=== PATIENT | female | born 1985 | race Caucasian/White ===

== ENCOUNTER 2018-08-12 10:36 | Emergency (ER) | payer SELFPAY ==
[2018-08-12 10:37] VITALS: BP 120/69; PULSE 72; RESP 18; TEMP 36.2; O2SAT 98; BMI 29.2
--- NOTE | 2018-08-12 10:39 | NURSING ---
NO OLD EKGS
--- NOTE | 2018-08-12 11:08 | EKG12_ITS ---
Test Reason : CP Blood Pressure : / mmHG Vent. Rate : 054 BPM Atrial Rate : 054 BPM P-R Int : 168 ms QRS Dur : 074 ms QT Int : 406 ms P-R-T Axes : 020 -11 039 degrees QTc Int : 385 ms Sinus bradycardia with sinus arrhythmia Otherwise normal ECG Confirmed by POLO DUMONT ([id number]), communications editor JUDITH REGALADO ([id number]) on 08/17/2018 2:42:19 PM Referred By: GURWINDER Confirmed By:DARLIN DUMONT
--- NOTE | 2018-08-12 11:08 | RAD_ITS ---
STUDY: X-RAY CHEST REASON FOR EXAM: Female, 33 years old. Chest pain and shortness of breath TECHNIQUE: PA and lateral views of the chest. COMPARISON: None. FINDINGS: The lungs are clear and expanded. There is no demonstrated pleural abnormality. Normal size heart. Normal mediastinum and delores. Normal visualized pulmonary arteries. Normal visualized aortic arch and descending thoracic aorta. Normal visualized thoracic spine. Normal visualized ribs, clavicles, and shoulders. There is no demonstrated abnormality of the visualized soft tissue structures of the upper abdomen. RAD/Chest PA and Lateral IMPRESSION: Normal x-ray examination of the chest. Electronically Signed: Nate Joy, at 12:15 EDT Tel , Service support ,
[2018-08-12] MEDS: Albuterol 2.5 MG/3 ML VIAL.NEB. INHALATION (11:13)
[2018-08-12 11:14] VITALS: O2SAT 98
--- NOTE | 2018-08-12 11:15 | ED.DCSUM_ITS ---
History of Present Illness Chief Complaint: Chest Pain Informant: Patient Onset: Yesterday Activity at onset: Light Activity Timing: Intermittent, Lasts - not sure Quality: Tightness Location: Substernal - without radiation Current Severity: Mild Maximum Severity: Moderate Worsened By: Exertion, Movement of Arm. Not Worsened By: Palpation, Breathing, Coughing Relieved By: Rest, Remaining Still Associated Symptoms: Nausea, Dyspnea. Negative for: Vomiting, Diaphoresis, Cough, Fever, Lightheadedness, Palpitations Narrative: Nonpleuritic discomfort. No history of asthma. Had strep throat recently, that is better, has about 1 day of amoxicillin left. No strong family history of heart disease. She takes no control pills or other mode of exogenous female hormones. No recent leg pain or swelling, hospitalization, surgery, immobilization, or long travel. No history of DVT or PE. Prior Similar Symptoms: No Past Medical History - Allergies and Home Meds Allergies/Adverse Reactions: Allergies No Known Allergies Allergy (Verified 08/12/18 10:37) Primary Care Physician: Kimberly Egan MD [NON-STAFF] - Lives: Spouse/ Significant Other Smoking Status: Never smoker Drugs: None Review of Systems General: Denies: Chills, Fever, Sweats Eyes: Denies: Visual changes - bilaterally, Diplopia ENT: Denies: Rhinorrhea, Sore throat Cardiovascular: Reports: Chest pain. Denies: Palpitations Respiratory: Reports: Dyspnea. Denies: Cough, Dyspnea on exertion Gastrointestinal: Reports: Nausea. Denies: Abdominal pain, Vomiting, Diarrhea, Melena, Hematochezia Genitourinary: Denies: Dysuria, Hematuria, Frequency Musculoskeletal: Denies: Back pain, Extremity Pain Skin: Denies: Rash, Wounds Neurological: Denies: Headache, Weakness, Numbness Physical Exam Vital Signs/Narrative: Vital Signs Temp Pulse Resp BP Pulse Ox 08/12/18 10:37 97.1 F L 72 18 120/69 98 Inital Vital Signs reviewed: Yes General: Well nourished, Well developed, No Acute Distress Head: Normocephalic, Atraumatic Eyes: Perrl, EOMI ENT: Moist mucous membranes, No rhinorrhea Neck: Supple, Nontender Cardiovascular: Regular rate, Regular rhythm, No murmurs Respiratory: No distress, CTA bilaterally, Chest nontender - but able to reproduce her sx by adducting outstretched arms against resistance Abdomen: Soft, Nontender, Nondistended, Normal bowel sounds Back: Nontender, Normal Inspection Extremities: Nontender, No edema. Negative for: Calf Tenderness - and no palpable cords Skin: Normal color, No rash, No Trauma Neurological: Alert, Oriented x3, Cranial nerves II-XII grossly intact, Normal Strength, Normal Sensation Psychological: Normal affect, Normal Mood Diagnostic/Tx/Re-eval Impressions Chest X-Ray 08/12/18 11:08 IMPRESSION: Normal x-ray examination of the chest. Electronically Signed: Nate Joy, at 12:15 EDT Tel , Service support , 08/12/18 11:08 Chest PA and Lateral [RAD] Stat Laboratory Results 08/12/18 08/12/18 11:45 11:45 WBC 7.0 RBC 4.82 Hgb 14.2 Hct 42.4 MCV 88.0 MCH 29.5 MCHC 33.5 RDW 12.6 RDW Differential 40.7 Plt Count 257 MPV 9.0 Immature Gran % (Auto) 0.300 Neut % (Auto) 56.6 Lymph % (Auto) 35.8 [place] % (Auto) 4.0 Eos % (Auto) 3.0 Baso % (Auto) 0.3 Absolute Neuts (auto) 4.0 Absolute Lymphs (auto) 2.52 Total Counted Not Reportable Sodium 139 Potassium 4.3 Chloride 108 H Carbon Dioxide 29.0 Anion Gap 2 L BUN 12 Creatinine 0.72 Estim Creat Clear Calc 89.54 Est GFR (MDRD) Af Amer 122 Est GFR (MDRD) Non-Af 101 BUN/Creatinine Ratio 16.8 Glucose 91 Calcium 8.8 Troponin I < 0.015 - Rhythm Strip Rhythm Strip: Sinus Rhythm Rate: 54 Ectopy: None - EKG Initial EKG Interpretation: Sinus Rhythm, No Acute Injury Pattern - normal EKG, nml axis Prior: No Prior Treatment: - - albuterol neb Repeat Eval: significantly improved - Medical Decision Making Work-up is unremarkable, patient is improved after albuterol. She is reassured. Her PERC score is 0, I do not think we need to further test to rule out pulmonary embolus acutely at this time. She admits that she has some spring seasonal allergy symptoms, although she has never been diagnosed with asthma she may also have a component of reactive airway disease. I will prescribe her a short burst of prednisone in addition to an albuterol inhaler and advised that she follow-up with her doctor and she is comfortable with this plan. ED Disposition - Plan for ED Patient: Disposition: Home or Assisted Living Diagnosis: Chest pain, unspecified Instructions: ED Chest Pain Atypical Unkn Cause, ED Reactive Airway Disease Prescriptions: Albuterol Inhaler [Ventolin Hfa] 1 - 2 puff INHALATION Q4H PRN PRN #1 inhaler PRN Reason: Wheezing Prednisone [Deltasone] 40 mg PO DAILY #10 tab Referrals: Kimberly Egan MD [NON-STAFF] - 3-5 Days if not improving
[2018-08-12 11:20] VITALS: PULSE 89; RESP 16
[2018-08-12 11:50] VITALS: BP 126/72; PULSE 55; RESP 16; O2SAT 100
[2018-08-12 11:52] LABS: Absolute Lymphocyte Count 2.52 X10^3/ul (0.83-4.51); Basophil# 0.02 X10^3/uL; Basophil% 0.3 % (0-1); Eosinophil# 0.21 X10^3/uL; Hematocrit 42.4 % (37-47); Hemoglobin 14.2 g/dl (12.0-15.0); Lymphocyte # 2.52 X10^3/ul (4.0); Lymphocyte % 35.8 % (19-41); Mean Corp Hgb Conc 33.5 g/gl (32-36); Mean Corpuscular Hgb 29.5 pg (27.0-32.0); Monocyte# 0.28 X10^3/uL; Neutrophil # 3.98 X10^3/uL (2.7-7.7); Neutrophil % 56.6 % (47-70); Platelet Count 257 K/mm3 (150-450); RBC Distribution Width CV 12.6 % (11.6-14.6); RBC Distribution Width SD 40.7 fl (35.1-43.9); Red Blood Count 4.82 M/mm3 (4.2-5.4)
[2018-08-12 11:56] LABS: POSITIVE COUNT NO; POSITIVE DIFFERENTIAL NO; POSITIVE MORPHOLOGY NO
[2018-08-12 12:08] LABS: Anion Gap 2 (5-15); BUN 12 mg/dL (7-18); BUN/Creat Ratio 16.8 RATIO (10-20); Calcium,Total 8.8 mg/dL (8.5-10.1); Chloride 108 mmol/L (98-107); Creatinine, Serum 0.72 mg/dL (0.55-1.02); EST Glomerular Filtration Rate 101 mL/min (>60); Est Glom Filt Rate - Afr Amer 122 mL/min (>60); Estimated Creatinine Clearance 89.54 ml/min; Glucose 91 mg/dL (74-106); Potassium 4.3 mmol/L (3.5-5.1); Sodium Level 139 mmol/L (136-145)
[2018-08-12 12:24] VITALS: BP 110/61; PULSE 81; RESP 18; O2SAT 99
[2018-08-12 13:08] VITALS: BP 114/64; PULSE 59; RESP 16; O2SAT 100
== END 2018-08-12 13:09 | disposition home or self-care (01) ==
PROVIDERS: Emergency Provider Emergency Medicine; Family Provider Internal Medicine; PCP Internal Medicine
DX: R07.9 Chest pain, unspecified (principal); J02.0 Streptococcal pharyngitis
CPT/HCPCS: 71046; 80048; 84484; 85025; 93005; 94640; 99284; A4216

== ENCOUNTER → 2020-07-07 14:12 | Outpatient (CLI) | payer SELFPAY ==
[2020-07-12 11:01] LABS: HPV Reflexed? NOT INDICATED
== END ==
PROVIDERS: PCP Internal Medicine; Visit Provider Obstetrics & Gynecology
DX: Z12.4 Encounter for screening for malignant neoplasm of cervix (principal)
CPT/HCPCS: 88175; G0145

== ENCOUNTER 2020-08-24 20:22 | Emergency (ER) | payer MEDICAID, SELFPAY ==
[2020-08-24 20:22] VITALS: BP 124/68; PULSE 85; RESP 18; TEMP 36.4; O2SAT 99; BMI 30.6
--- NOTE | 2020-08-24 20:36 | CT_ITS ---
STUDY: CTA CHEST REASON FOR EXAM: Female, 35 years old. pulmonary emb RADIATION DOSAGE (If Supplied By Facility): CTDIvol = ( 12.01 ) mGy, DLP = ( 409.33 ) mGycm TECHNIQUE: The examination was performed with the intravenous administration of IV 75mL Isovue-370. Post-processing of the angiographic images was performed, with multiplanar reformation and 3D reconstruction. Individualized dose optimization techniques were used for this CT. COMPARISON: None. FINDINGS: Normal enhancement of the main pulmonary artery and right and left pulmonary arteries. Normal enhancement of the bilateral peripheral pulmonary arteries. There is no demonstrated pulmonary embolism. Normal thoracic aorta and visualized great vessels. There is no demonstrated aortic dissection. Normal heart and pericardium. Normal mediastinum. Normal hilar regions. Normal visualized trachea and bronchi. The lungs are well expanded. Normal pulmonary parenchyma. No consolidation or pulmonary edema or pleural effusion. Normal pleura. Normal chest wall structures. Normal osseous structures. Unremarkable visualized upper abdomen. Small hiatal hernia noted. CT/CTA Chest W/WO Contrast IMPRESSION: 1. No demonstrated pulmonary embolism or arterial dissection. 2. No consolidation or pulmonary edema or pleural effusion Electronically Signed: Allan Rosas MD at 21:29 EDT , Service support ,
--- NOTE | 2020-08-24 20:36 | EKG12_ITS ---
Test Reason : ABNORMAL LABS Blood Pressure : / mmHG Vent. Rate : 082 BPM Atrial Rate : 082 BPM P-R Int : 152 ms QRS Dur : 070 ms QT Int : 364 ms P-R-T Axes : 022 -09 045 degrees QTc Int : 425 ms Normal sinus rhythm Normal ECG Confirmed by LUIS ENRIQUE FELIX, ALAN ([id number]), state editor TIMUR GUTIERREZ ([id number]) on 08/25/2020 10:23:45 AM Referred By: DC Confirmed By:ALAN DUDLEY MD
[2020-08-24 21:09] LABS: Absolute Lymphocyte Count 2.11 X10^3/uL (0.83-4.51); Absolute Neutrophil Count 6.4 X10^3/uL (2.0-7.7); Basophil# 0.04 X10^3/uL; Basophil% 0.4 % (0-1); Eosinophil# 0.21 X10^3/uL; Eosinophils% 2.3 % (0-5); Lymphocyte # 2.11 X10^3/ul (0.83-4.51); Mean Corp Hgb Conc 33.3 g/dL (32-36); Mean Corpuscular Hgb 29.1 pg (27.0-32.0); Mean Corpuscular Volume 87.3 fL (81-99); Mean Platelet Vol. 9.2 fl (6.2-12.0); Monocyte# 0.44 X10^3/uL; Monocyte% 4.8 % (0-10); NRBC Flagged by Analyzer 0 % (0-5); Neutrophil # 6.36 X10^3/uL (2.7-7.7); Neutrophil % 69.2 % (47-70); Platelet Count 308 K/mm3 (150-450); RBC Distribution Width CV 12.2 % (11.6-14.6); Red Blood Count 4.81 M/mm3 (4.2-5.4); White Blood Count 9.2 K/mm3 (4.4-11.0)
[2020-08-24 21:30] LABS: Anion Gap 6 (5-15); BUN 12 mg/dL (7-18); BUN/Creat Ratio 18.2 RATIO (10-20); Calcium,Total 9.3 mg/dL (8.5-10.1); Chloride 105 mmol/L (98-107); Creatinine, Serum 0.66 mg/dL (0.55-1.02); EST Glomerular Filtration Rate 109 mL/min (>60); Est Glom Filt Rate - Afr Amer 132 mL/min (>60); Estimated Creatinine Clearance 95.89 ml/min; Glucose 105 mg/dL (74-106); Potassium 3.6 mmol/L (3.5-5.1); Sodium Level 137 mmol/L (136-145)
--- NOTE | 2020-08-24 22:52 | EDS_ITS ---
HPI History of Present Illness Chief Complaint: Abn Labs Informant: patient Onset/Context/Timing Onset: Today Quality: D-dimer 3000 Worsened by: Nothing Relieved by: Nothing Associated Symptoms Associated Symptoms: Dyspnea, increased heart rate, currently 10 weeks Narrative Prior similar symptoms: No Recent Illness/Hospitalization: No PFSH PFSH Medical History Asthma Home Medications albuterol sulfate 1 - 2 puff INHALATION Q4H PRN PRN #1 inhaler 08/12/18 [Rx Last Taken Unknown] multivitamin,[id number] [Multivitamin With Minerals] 1 tab PO DAILY 08/12/18 [History Last Taken Unknown] montelukast [Singulair] 10 mg PO QHS 08/24/20 [History Last Taken Unknown] 21-iron fu-folic acid [ Complete] 1 tab PO DAILY 08/24/20 [History Last Taken Unknown] Allergy/AdvReac Type Severity Reaction Status Date / Time No Known Allergies Allergy Verified 08/24/20 20:24 Social History Smoking Status: Never smoker ROS ROS ED Review of Systems ROS Unobtainable: Denies due to encephalopathy Constitutional Constitutional ED: Denies chills or fever(s) Eyes Eyes: Denies change in vision ENT ENT ED: Denies ear pain Cardiovascular Cardiovascular: Reports chest pain; Denies palpitations Respiratory/Chest Respiratory/Chest: Reports dyspnea; Denies cough Gastrointestinal Gastrointestinal: Denies abdominal pain, nausea or vomiting Genitourinary Genitourinary ED: Denies dysuria Musculoskeletal Musculoskeletal: Denies myalgias Integumentary Denies rash Neurologic Neurologic: Denies headache(s) Psychiatric Psychiatric: Denies depression Endocrine Endocrinology: Denies polyuria Allergic/Immunologic Allergic/Immunologic ED: Denies urticaria EXAM Physical Exam Const Vital Signs: 08/24/20 20:22 08/24/20 21:13 08/24/20 21:14 Temperature 97.6 F L Temperature Source Temporal Pulse Rate 85 Respiratory Rate 18 Respiratory Effort Short of Breath Respiratory Pattern Normal Blood Pressure 124/68 H Blood Pressure Mean 86 Pulse Ox 99 Oxygen Delivery Method Room Air Room Air 08/24/20 23:02 Temperature Temperature Source Pulse Rate 73 Respiratory Rate 20 H Respiratory Effort Respiratory Pattern Blood Pressure 110/73 Blood Pressure Mean Pulse Ox 98 Oxygen Delivery Method Positive well nourished and well developed General Appearance ED: well developed HEENT trauma Eyes EOMs intact bilaterally Resp normal respiratory effort and clear to auscultation bilaterally Cardio regular rate and regular rhythm Extremity normal to inspection General Extremety ED: Negative for edema General Extremity: Negative for edema Neuro oriented x3 Sensorium / Orientation: alert Psych mental status grossly normal Skin no rashes or lesions noted MDM MDM MDM Narrative Medical decision making narrative: Patient consented to CTA. This was unrem arkable for any PE or acute abnormality. Her other laboratory testing was unremarkable and reassuring. Patient has outpatient follow-up. Return for any new or worsening issues. Lab Data Attestation: I reviewed the patient's lab results. Labs: Laboratory Results - last 24 hr 08/24/20 08/24/20 20:40 20:40 WBC 9.2 RBC 4.81 Hgb 14.0 Hct 42.0 MCV 87.3 MCH 29.1 MCHC 33.3 RDW Std Deviation 39.0 RDW Coeff of Jay 12.2 Plt Count 308 MPV 9.2 Immature Gran % (Auto) 0.300 Neut % (Auto) 69.2 Lymph % (Auto) 23.0 [place] % (Auto) 4.8 Eos % (Auto) 2.3 Baso % (Auto) 0.4 Absolute Neuts (auto) 6.4 Absolute Lymphs (auto) 2.11 Nucleated RBC % 0 Sodium 137 Potassium 3.6 Chloride 105 Carbon Dioxide 26.0 Anion Gap 6 BUN 12 Creatinine 0.66 Estim Creat Clear Calc 95.89 Est GFR (MDRD) Af Amer 132 Est GFR (MDRD) Non-Af 109 BUN/Creatinine Ratio 18.2 Glucose 105 Calcium 9.3 Troponin I < 0.015 Radiography Diagnostic Testing: Radiology Impression Chest CTA 08/24/20 20:36 IMPRESSION: 1. No demonstrated pulmonary embolism or arterial dissection. 2. No consolidation or pulmonary edema or pleural effusion Electronically Signed: Allan Rosas MD at 21:29 EDT , Service support , EKG Initial EKG: Attestation: I personally reviewed and interpreted this EKG as follows: Comments: Sinus rhythm at a rate of 82 with no acute ischemia or infarction pattern. Discharge Plan Triage Chief Complaint: Abn Labs ED Provider: David Zarate Dx/Rx/DC Orders Clinical Impression: Chest pain Prescriptions: No Action Therems-M 1 TABLET tablet 1 tab PO DAILY RF: 0 albuterol sulfate 1 INHALER inhaler 1 - 2 puff inhalation Q4H PRN PRN (Reason: Wheezing) Qty: 1 RF: 0 montelukast [Singulair] 10 mg tablet 10 mg PO QHS RF: 0 Complete 14 mg iron- 400 mcg Tablet 1 tab PO DAILY RF: 0 Primary Care Provider: Dang Arceo Referrals: Dang Arceo MD [Primary Care Provider] - Disposition Disposition: Home, self care Discharge Date/Time: 08/24/20 23:03
[2020-08-24 23:02] VITALS: BP 110/73; PULSE 73; RESP 20; O2SAT 98
== END 2020-08-24 23:03 | disposition home or self-care (01) ==
PROVIDERS: Emergency Provider Emergency Medicine; PCP Internal Medicine
DX: O26.891 Other specified pregnancy related conditions, first trimester (principal); R07.9 Chest pain, unspecified; R06.00 Dyspnea, unspecified; Z3A.10 10 weeks gestation of pregnancy
CPT/HCPCS: 71275; 80048; 84484; 85025; 93005; 99284; Q9967

== ENCOUNTER → 2020-09-06 15:41 | Outpatient (CLI) | payer MEDICAID, SELFPAY ==
[2020-08-24 20:22] VITALS: BMI 30.6
[2020-09-06 16:52] LABS: Absolute Lymphocyte Count 1.98 X10^3/uL (0.83-4.51); Absolute Neutrophil Count 6.5 X10^3/uL (2.0-7.7); Basophil# 0.03 X10^3/uL; Basophil% 0.3 % (0-1); Eosinophils% 1.1 % (0-5); Hematocrit 43.9 % (37-47); Hemoglobin 14.6 g/dL (12.0-15.0); Lymphocyte # 1.98 X10^3/ul (0.83-4.51); Lymphocyte % 21.7 % (19-41); Mean Corp Hgb Conc 33.3 g/dL (32-36); Mean Corpuscular Hgb 29.5 pg (27.0-32.0); Mean Corpuscular Volume 88.7 fL (81-99); Mean Platelet Vol. 9.1 fl (6.2-12.0); Monocyte# 0.46 X10^3/uL; NRBC Flagged by Analyzer 0 % (0-5); Neutrophil # 6.51 X10^3/uL (2.7-7.7); Neutrophil % 71.6 % (47-70); Platelet Count 319 K/mm3 (150-450); RBC Distribution Width CV 12.3 % (11.6-14.6); RBC Distribution Width SD 40.3 fl (35.1-43.9); Red Blood Count 4.95 M/mm3 (4.2-5.4); White Blood Count 9.1 K/mm3 (4.4-11.0)
[2020-09-06 17:11] LABS: Color, Urine Yellow (Yellow); Glucose, Dipstick Normal (Normal); Ketone-Dipstick Negative (Negative); Leukocyte Esterase-Dipstick 500 /ul (Negative); Nitrite-Dipstick Negative (Negative); Occult Blood-Urine 10 /ul (Negative); Protein-Dipstick 15 mg/dl (Negative); Urine Bilirubin Dipstick Negative (Negative); Urine Clarity Clear (Clear); Urine Urobilinogen Normal (Normal)
[2020-09-06 17:34] LABS: Thyroid Stim Hormone (TSH) 0.67 uIU/mL (0.358-3.74)
[2020-09-07 08:22] LABS: HIV - WCH Non-Reactive (Nonreactive); Hepatitis B Surface Antigen Non-Reactive (Nonreactive); Hepatitis C Antibody Non-Reactive (Nonreactive); Rubella IgG Reactive (Nonreactive); Syphilis Antibodies Non-reactive
[2020-09-09 00:11] LABS: Chlamydia By Nucleic Acid AMP Negative (Negative)
[2020-09-09 10:01] LABS: Gonococcus By Nucleic Acid AMP Negative (Negative)
== END ==
PROVIDERS: PCP Internal Medicine; Visit Provider Obstetrics & Gynecology
DX: Z11.3 Encounter for screening for infections with a predominantly sexual mode of transmission (principal); Z34.81 Encounter for supervision of other normal pregnancy, first trimester
CPT/HCPCS: 36415; 81002; 84443; 85025; 86703; 86762; 86780; 86803; 87340; 87491; 87591

== ENCOUNTER → 2021-03-22 11:19 | Outpatient (CLI) | payer MEDICAID, SELFPAY ==
--- NOTE | 2021-03-22 11:23 | US_ITS ---
STUDY: SECOND AND THIRD TRIMESTER OBSTETRICAL ULTRASOUND - LIMITED REASON FOR EXAM: Female, 35 years old GROWTH CHECK LMP: 06/18/2020. PRIOR ULTRASOUND: None. TECHNIQUE: Transabdominal TECHNICAL QUALITY: Adequate. FINDINGS: There is a single intrauterine fetus. The fetus is in a cephalic presentation. There is demonstrated cardiac activity with a heart rate of 145 bpm. There is a normal amniotic fluid volume. The largest amniotic fluid pocket measures 4.4 cm. The amniotic fluid index (JASON) is 10.5 cm. The placenta is anterior in location and is not low lying. There are Grade 2 placental changes. BIOMETRY: BPD: 9.07 cm: 36 weeks, 5 days HC: 33.01 cm: 37 weeks, 4 days AC: 11.46 cm: 39 weeks, 4 days FL: 7.63 cm: 39 weeks, 0 days Age by LMP: 39 weeks, 4 days. AKBAR by LMP: 03/25/2021. age by current US: 38 weeks, 3 days. AKBAR by current US: 04/02/2021. Estimated weight: 3682 grams, +/- 552 grams, 62 percentile. US/OB Limited With Biometrics IMPRESSION: Single live intrauterine gestation with a mean gestational age of 39 weeks and 4 days. Electronically Signed: Chaim Choi MD at 12:34 EST , Service support ,
== END ==
PROVIDERS: PCP Internal Medicine; Referring Provider Specialist; Visit Provider Specialist
DX: O26.843 Uterine size-date discrepancy, third trimester (principal); Z3A.39 39 weeks gestation of pregnancy
CPT/HCPCS: 76816

== ENCOUNTER 2021-04-03 15:09 | Emergency (ER) | payer MEDICAID, SELFPAY ==
[2021-04-03 15:11] VITALS: BP 146/80; PULSE 45; RESP 18; TEMP 36.4; O2SAT 99; BMI 31.2
[2021-04-03 15:44] VITALS: BP 182/78; PULSE 38; RESP 12
--- NOTE | 2021-04-03 15:57 | RAD_ITS ---
History: Bradycardia Portable chest: Comparison: August 12, 2018 Findings: Small focus of airspace opacification within the left upper lobe suggestive of pneumonia. Lungs are otherwise clear. Cardiomediastinal silhouette is normal. No pleural effusion or pneumothorax. IMPRESSION: Left upper lobe pneumonia. at 1617 Reported and signed by: Mando Chandler MD Electronically Signed: Mando Chandler MD at 16:16 EST Tel , Service support , RAD/Chest 1 View (Portable)
--- NOTE | 2021-04-03 15:58 | EKG12_ITS ---
Test Reason : LAYA Blood Pressure : / mmHG Vent. Rate : 035 BPM Atrial Rate : 035 BPM P-R Int : 170 ms QRS Dur : 072 ms QT Int : 474 ms P-R-T Axes : 022 -21 045 degrees QTc Int : 361 ms Marked sinus bradycardia Abnormal ECG Confirmed by DEBO FELIX, SAMANTHA ([id number]), science editor ITA MACEDO ([id number]) on 04/05/2021 11:11:10 AM Referred By: ALEM Confirmed By:SAMANTHA EDMONDSON MD
--- NOTE | 2021-04-03 15:59 | EX.ED.DYSGE1 ---
HPI History of Present Illness Chief Complaint: General Illness Informant: patient Narrative Narrative: 35-year-old female presents to the emergency room with bradycardia. She is week 1. She delivered at [facility]. She states the was rather uneventful. She had some leg cramps and began taking magnesium about 5 weeks ago. She states that at the very end of her she had some lower extremity swelling which was not uncommon compared to her other pregnancies. She states that delivery was uncomplicated and she went home 24 hours later. Baby has been doing well. She is breast-feeding. She states she has felt a little fatigued today. She denies any significant dyspnea or near syncope or syncopal episodes. She noticed that her heart rate seemed low especially when she lays down. [facility] Medical History Asthma Home Medications albuterol sulfate 1 - 2 puff INHALATION Q4H PRN PRN #1 inhaler 08/12/18 [Rx Last Taken Unknown] multivitamin,[id number] [Multivitamin With Minerals] 1 tab PO DAILY 08/12/18 [History Last Taken Unknown] montelukast [Singulair] 10 mg PO QHS 08/24/20 [History Last Taken Unknown] 21-iron fu-folic acid [ Complete] 1 tab PO DAILY 08/24/20 [History Last Taken Unknown] magnesium oxide 420 mg PO DAILY 04/03/21 [History Last Taken Unknown] Allergy/AdvReac Type Severity Reaction Status Date / Time No Known Allergies Allergy Verified 04/03/21 15:13 Social History (Updated 04/03/21 @ 16:[address] David León DO) Smoking Status: Never smoker substance use type: does not use ROS ROS ED Constitutional Constitutional ED: Denies chills, fever(s) or weight loss Eyes Eyes: Denies change in vision or diplopia ENT ENT ED: Denies ear pain, rhinorrhea or sore throat Cardiovascular Cardiovascular: Reports other Details: Bradycardia ; Denies chest pain, orthopnea, palpitations or racing heartbeat Respiratory/Chest Respiratory/Chest: Denies cough, dyspnea or orthopnea Gastrointestinal Gastrointestinal: Denies abdominal pain, diarrhea, nausea or vomiting Genitourinary Genitourinary ED: Denies dysuria, hematuria or urinary frequency Musculoskeletal Musculoskeletal: Reports other Details: Mild leg swelling ; Denies arthralgias or myalgias Integumentary Denies abscess or rash Neurologic Neurologic: Denies headache(s) or weakness Psychiatric Psychiatric: Denies anxiety, depression, suicidal ideation or suicidal thoughts Endocrine Endocrinology: Denies polydipsia, polyphagia or polyuria Allergic/Immunologic Allergic/Immunologic ED: Denies mouth swelling, tongue swelling or urticaria EXAM Physical Exam Const Vital Signs: 04/03/21 15:11 04/03/21 15:44 04/03/21 15:49 Temperature 97.5 F L Temperature Source Temporal Pulse Rate 45 L 38 L Respiratory Rate 18 12 Respiratory Effort Normal Non-Labored Respiratory Pattern Normal Blood Pressure 146/80 H 182/78 H Blood Pressure Mean 102 112 Pulse Ox 99 Oxygen Delivery Method Room Air 04/03/21 16:35 04/03/21 17:00 Temperature Temperature Source Pulse Rate 39 L 37 L Respiratory Rate 16 14 Respiratory Effort Respiratory Pattern Blood Pressure 151/94 H 170/77 H Blood Pressure Mean 113 108 Pulse Ox Oxygen Delivery Method Room Air Room Air Positive well nourished, well developed and obese General Appearance ED: well developed Nutritional Appearance: obese HEENT Reports normocephalic, head/scalp atraumatic, TM's clear and moist mucous membranes Negative for trauma Tympanic Membrane ED: Yes TM's clear Eyes PERRL and EOMs intact bilaterally Neck no lymphadenopathy, supple and no JVD Resp normal respiratory effort and clear to auscultation bilaterally Cardio regular rate and no murmurs Rate: bradycardia GI normal to inspection, nondistended, normoactive bowel sounds and non-tender Palpation: soft Back/Spine no CVA tenderness and normal ROM Extremity Negative for normal to inspection Extremity Narrative: 1+ bilateral lower extremity edema General Extremety ED: Yes edema; Negative for tenderness General Extremity: edema Neuro oriented x3 and CN's II-XII intact bilaterally Sensorium / Orientation: alert Motor Exam: strength 5/5 throughout Psych mental status grossly normal Mood & Affect: Negative for depressed or tearful Skin no rashes or lesions noted and no wounds MDM MDM MDM Narrative Medical decision making narrative: Basic blood work was rather unremarkable normal sodium potassium magnesium. My interpretation of the chest x-ray is no acute process. Radiology has concerns for a left upper lobe pneumonia but given that she does not have cough fever or white count I think that this might be an overcall. Patient continues to have sinus bradycardia in the 35-45 range. I spoke with on-call simplex printer installer Dr. Johnson. We presented the patient with two choices. The first is that she would be admitted overnight with echocardiogram tomorrow. Unfortunately given the pandemic her baby will not be allowed to stay with her. We did offer breast pump. The second option will be to go home with outpatient follow-up. Patient chooses option #2 which I do think is reasonable at this time as she appears relatively asymptomatic from the bradycardia. I will speak with her primary care doctor to help arrange follow-up and help arrange Holter monitor and echocardiogram. Lab Data Attestation: I reviewed the patient's lab results. Labs: Laboratory Results - last 24 hr 04/03/21 04/03/21 15:15 15:15 WBC 6.6 RBC 3.71 L Hgb 10.3 L Hct 32.1 L MCV 86.5 MCH 27.8 MCHC 32.1 RDW Std Deviation 41.7 RDW Coeff of Jay 13.4 Plt Count 319 MPV 9.9 Immature Gran % (Auto) 1.100 H Neut % (Auto) 66.2 Lymph % (Auto) 24.8 [place] % (Auto) 4.6 Eos % (Auto) 2.7 Baso % (Auto) 0.6 Absolute Neuts (auto) 4.4 Absolute Lymphs (auto) 1.63 Nucleated RBC % 0 Sodium 141 Potassium 4.3 Chloride 109 H Carbon Dioxide 24.0 Anion Gap 8 BUN 13 Creatinine 0.85 Estim Creat Clear Calc 74.45 Est GFR (MDRD) Af Amer 99 Est GFR (MDRD) Non-Af 82 BUN/Creatinine Ratio 15.4 Glucose 78 Calcium 8.4 L Magnesium 2.4 Total Bilirubin 0.40 Direct Bilirubin 0.06 AST 23 ALT 38 Alkaline Phosphatase 84 Troponin I High Sens 6 Total Protein 6.8 Albumin 2.6 L Globulin 4.2 Radiography Diagnostic Testing: Clinical Impression(s) from Imaging Studies Chest X-Ray 04/03/21 15:57 EKG Initial EKG: Attestation: I personally reviewed and interpreted this EKG as follows: Comments: Sinus bradycardia with a ventricular rate of 35 bpm. Discharge Plan Triage Chief Complaint: General Illness ED Provider: David León Dx/Rx/DC Orders Clinical Impression: Bradycardia, sinus Instructions: ED Bradycardia Prescriptions: No Action Therems-M 1 TABLET tablet 1 tab PO DAILY RF: 0 albuterol sulfate 1 INHALER inhaler 1 - 2 puff inhalation Q4H PRN PRN (Reason: Wheezing) Qty: 1 RF: 0 montelukast [Singulair] 10 mg tablet 10 mg PO QHS RF: 0 Complete 14 mg iron- 400 mcg Tablet 1 tab PO DAILY RF: 0 magnesium oxide 420 mg Tablet 420 mg PO DAILY RF: 0 Primary Care Provider: Dang Arceo Referrals: Dang Arceo MD [Primary Care Provider] - As soon as possible Disposition Disposition: Home, Self Care
[2021-04-03 16:35] VITALS: BP 151/94; PULSE 39; RESP 16
[2021-04-03 16:36] LABS: Absolute Lymphocyte Count 1.63 X10^3/uL (0.83-4.51); Absolute Neutrophil Count 4.4 X10^3/uL (2.0-7.7); Basophil# 0.04 X10^3/uL; Basophil% 0.6 % (0-1); Eosinophil# 0.18 X10^3/uL; Eosinophils% 2.7 % (0-5); Hematocrit 32.1 % (37-47); Hemoglobin 10.3 g/dL (12.0-15.0); Lymphocyte # 1.63 X10^3/ul (0.83-4.51); Lymphocyte % 24.8 % (19-41); Mean Corp Hgb Conc 32.1 g/dL (32-36); Mean Corpuscular Hgb 27.8 pg (27.0-32.0); Mean Corpuscular Volume 86.5 fL (81-99); Mean Platelet Vol. 9.9 fl (6.2-12.0); Monocyte% 4.6 % (0-10); NRBC Flagged by Analyzer 0 % (0-5); Neutrophil # 4.35 X10^3/uL (2.7-7.7); Neutrophil % 66.2 % (47-70); Platelet Count 319 K/mm3 (150-450); RBC Distribution Width CV 13.4 % (11.6-14.6); RBC Distribution Width SD 41.7 fl (35.1-43.9); Red Blood Count 3.71 M/mm3 (4.2-5.4); White Blood Count 6.6 K/mm3 (4.4-11.0)
[2021-04-03 16:44] LABS: AST(SGOT) 23 U/L (15-37); Alanine Aminotransfer ALT/SGPT 38 U/L (13-56); Albumin, Serum 2.6 g/dL (3.2-5.0); Alkaline Phosphatase 84 U/L (45-117); Anion Gap 8 (5-15); BUN 13 mg/dL (7-18); BUN/Creat Ratio 15.4 RATIO (10-20); Bilirubin, Direct 0.06 mg/dL (0.00-0.30); Calcium,Total 8.4 mg/dL (8.5-10.1); Chloride 109 mmol/L (98-107); Creatinine, Serum 0.85 mg/dL (0.55-1.02); EST Glomerular Filtration Rate 82 mL/min (>60); Est Glom Filt Rate - Afr Amer 99 mL/min (>60); Estimated Creatinine Clearance 74.45 ml/min; Globulin 4.2 g/dL (2.2-4.2); Glucose 78 mg/dL (74-106); Magnesium 2.4 mg/dL (1.6-2.6); Potassium 4.3 mmol/L (3.5-5.1); Protein, Total 6.8 g/dL (6.4-8.2); Sodium Level 141 mmol/L (136-145); Troponin-I HS 6 pg/mL (3.0-54.0)
[2021-04-03 17:00] VITALS: BP 170/77; PULSE 37; RESP 14
[2021-04-03 18:42] VITALS: BP 166/74; PULSE 39; RESP 15; O2SAT 97
[2021-04-03 18:55] LABS: Thyroid Stim Hormone (TSH) 1.33 uIU/mL (0.358-3.74)
== END 2021-04-03 19:05 | disposition home or self-care (01) ==
PROVIDERS: Emergency Provider Emergency Medicine; PCP Internal Medicine; Visit Provider Emergency Medicine
DX: R00.1 Bradycardia, unspecified (principal); E66.9 Obesity, unspecified; Z68.31 Body mass index [BMI] 31.0-31.9, adult
CPT/HCPCS: 71045; 80048; 80076; 83735; 84443; 84484; 85025; 93005; 99284

== ENCOUNTER 2021-12-31 20:06 | Emergency (ER) | payer MEDICAID, SELFPAY ==
[2021-12-31 20:08] VITALS: BP 116/69; PULSE 70; RESP 14; TEMP 36.4; O2SAT 100; BMI 29.7
--- NOTE | 2021-12-31 20:52 | EDS_ITS ---
HPI History of Present Illness Chief Complaint: Wound Narrative Narrative: 36-year-old female presenting for a wound check. She had a mole removed from the lateral aspect of the right upper extremity just above the elbow several days ago. This was by dermatology at [facility]. Subsequently this became infected a couple of days ago. She was seen and examined and started on Keflex 3 times daily 500 mg. She states that is actually improving. The area of redness was marked and she has not spread outside the margins. The redness is fainter. Her pain is improved. She does not have any lymphangitic streaking. No fevers or chills or systemic signs. She states her was concerned and wanted her to be evaluated. [facility] Medical History Asthma Home Medications albuterol sulfate 90 mcg/actuation aerosol inhaler 1 - 2 puff inhalation Q4H PRN PRN Wheezing ##1 08/12/18 [Rx Last Taken Unknown] multivitamin,ia-esnv-nerjrqct 27 mg-0.4 mg tablet (Therems-M) 1 tab PO DAILY 08/12/18 [History Last Taken Unknown] montelukast 10 mg tablet (Singulair) 10 mg PO QHS 08/24/20 [History Last Taken Unknown] vits,calcium 21-iron fum 14 mg iron-folic acid 400 mcg tablet ( Complete) 1 tab PO DAILY 08/24/20 [History Last Taken Unknown] magnesium oxide 420 mg tablet 420 mg PO DAILY 04/03/21 [History Last Taken Unknown] Allergy/AdvReac Type Severity Reaction Status Date / Time No Known Allergies Allergy Verified 12/31/21 20:07 Social History Smoking Status: Never smoker substance use type: does not use ROS ROS ED Constitutional Constitutional ED: Denies chills or fever(s) Eyes Eyes: Denies change in vision ENT ENT ED: Denies rhinorrhea or sore throat Cardiovascular Cardiovascular: Denies palpitations or racing heartbeat Respiratory/Chest Respiratory/Chest: Denies cough or dyspnea Gastrointestinal Gastrointestinal: Denies abdominal pain or constipation Genitourinary Genitourinary ED: Denies dysuria or hematuria Musculoskeletal Musculoskeletal: Denies back pain or myalgias Integumentary Reports other Details: Wound on right upper arm ; Denies abscess Neurologic Neurologic: Denies headache(s) or paresthesias Psychiatric Psychiatric: Denies anxiety or depression EXAM Physical Exam Const Vital Signs: 12/31/21 20:08 Temperature 97.5 F L Temperature Source Temporal Pulse Rate 70 Respiratory Rate 14 Blood Pressure 116/69 Blood Pressure Mean 84 Pulse Ox 100 Oxygen Delivery Method Room Air Positive well nourished General Appearance ED: NAD HEENT normocephalic and atraumatic Eyes PERRL and EOMs intact bilaterally Resp normal respiratory effort Cardio regular rate and regular rhythm Extremity Extremity Narrative: There is a 1 cm circular wound on the right upper arm on the posterior above the elbow about 8 cm. There is an area marked with a skin marker with some mild faint erythema within this. There is no redness outside the skin marker. There is no crepitance. There is no drainage. There is no fluctuance. Neuro oriented x3 Sensorium / Orientation: alert Motor Exam: strength 5/5 throughout Psych mental status grossly normal MDM MDM MDM Narrative Medical decision making narrative: Patient presents for wound check. There is no redness outside the area marked off on her arm. Patient reports that her pain is better. The redness has gone down. Does not been any drainage from the wound. She states she wanted to just get a wound check because her was concerned. She feels like she is overall getting better. She is on Keflex 500 mg p.o. 3 times daily. I counseled her this was likely going to heal. If it is already getting better on Keflex I will change her medications. She is instructed on wound care. She will follow-up with dermatology. Impression: 1. Wound check 2. Resolving cellulitis Lab Data Attestation: I reviewed the patient's lab results. Discharge Plan Triage Chief Complaint: Wound ED Provider: Kevin Hester Dx/Rx/DC Orders Instructions: ED Post Op Wound Check, General Prescriptions: No Action Therems-M 1 TABLET tablet 1 tab PO DAILY albuterol sulfate 1 INHALER inhaler 1 - 2 puff inhalation Q4H PRN PRN (Reason: Wheezing) Qty: 1 0RF montelukast [Singulair] 10 mg tablet 10 mg PO QHS Label Comments: take 1 tablet by mouth at bedtime Complete 14 mg iron- 400 mcg Tablet 1 tab PO DAILY magnesium oxide 420 mg Tablet 420 mg PO DAILY Primary Care Provider: Dang Arceo Referrals: Dang Arceo MD [Primary Care Provider] - Disposition Disposition: Home, Self Care
== END 2021-12-31 20:58 | disposition home or self-care (01) ==
PROVIDERS: Emergency Provider Student in an Organized Health Care Education/Training Program; PCP Internal Medicine; Visit Provider Student in an Organized Health Care Education/Training Program
DX: Z48.00 Encounter for change or removal of nonsurgical wound dressing (principal); L03.90 Cellulitis, unspecified; J45.909 Unspecified asthma, uncomplicated
CPT/HCPCS: 99282

== ENCOUNTER 2022-10-27 12:58 | Inpatient (IN) | payer OTHER, SELFPAY ==
[2022-10-27] VITALS (10 sets, daily range): BP systolic 99–128; BP diastolic 62–78; PULSE 61–82; RESP 14–18; TEMP 35.7–36.8; O2SAT 97–100; BMI 29.5; BMI 29.7
--- NOTE | 2022-10-27 13:03 | EX.ED.DYSGE1 ---
HPI History of Present Illness Chief Complaint: Syncope [facility] Medical History Asthma Home Medications albuterol sulfate 90 mcg/actuation aerosol inhaler 1 - 2 puff inhalation Q4H PRN PRN Wheezing ##1 08/12/18 [Rx Last Taken Unknown] multivitamin,ru-mazz-aforgjfc 27 mg-0.4 mg tablet (Therems-M) 1 tab PO DAILY 08/12/18 [History Last Taken Unknown] montelukast 10 mg tablet (Singulair) 10 mg PO QHS 08/24/20 [History Last Taken Unknown] vits,calcium 21-iron fum 14 mg iron-folic acid 400 mcg tablet ( Complete) 1 tab PO DAILY 08/24/20 [History Last Taken Unknown] magnesium oxide 420 mg tablet 420 mg PO DAILY 04/03/21 [History Last Taken Unknown] Allergy/AdvReac Type Severity Reaction Status Date / Time No Known Allergies Allergy Verified 12/31/21 20:07 Social History Smoking Status: Never smoker substance use type: does not use EXAM Physical Exam Const Vital Signs: 10/27/22 12:59 10/27/22 12:58 10/27/22 13:47 Temperature 96.2 F L Temperature Source Temporal Pulse Rate 82 Respiratory Rate 18 Respiratory Pattern Normal Blood Pressure 99/64 Blood Pressure Mean 75 Pulse Ox 99 Oxygen Delivery Method Room Air Room Air MDM MDM MDM Narrative Medical decision making narrative: HISTORY OF PRESENT ILLNESS: 37-year-old female here after passing out this morning. She states she passed out approximately 2 hours prior to arrival. States she had no trauma she felt like she was going to pass out felt dizzy warm flushed and woozy. Patient dates she then laid on the ground and passed out. She regained consciousness within seconds. reports no convulsions. No tongue biting or bowel or bladder incontinence. She denies any focal numbness weakness or loss sensation. The patient denies recent surgery in the last 4 weeks or immobilization in the last 3 days, denies previous diagnosis of DVT or PE, hemoptysis, unilateral leg swelling or malignancy with treatment the last 6 months. No estrogen use noted. Patient denies sudden onset or thunderclap headache, denies maximal intensity within 1 minute, vomiting, neck pain or stiffness, changes in vision, fever, history malignancy, syncope, seizures. Patient denies sudden onset of pain, no tearing sensation, no migratory symptoms, no new numbness, weakness or loss of sensation. Patient denies family history or personal history of Marfan syndrome or Smiley-Danlos REVIEW OF SYSTEMS: Pertinent positives: Syncope Pertinent negatives: Headache, chest pain, abdominal pain, bleeding diathesis, volume loss such as diarrhea or vomiting PHYSICAL EXAM: Nursing triage notes reviewed, Vital signs reviewed Constitutional: please see mdm HENT: MMM Eyes: Pupils equal round and reactive to light, Extraocular muscles intact Neck: No stridor, no JVD, full neck ROM Lungs: Clear to auscultation, No wheezing or rales. No increased work of breathing, no conversational dyspnea, no accessory muscle use, no nasal flaring. No respiratory distress noted Heart: Regular rate and rhythm, No murmurs, No rubs and No gallops, 2+ distal pulses (radial, femoral, posterior tibial) in all extremities Abdomen: Soft, there is no tenderness, rigidity, rebound or guarding, no obvious peritoneal signs, no palpable pulsatile abdominal masses, no auscultated abdominal bruit : No CVAT Extremities: No edema Neuro: Alert and oriented x3, neuro exam at baseline, cranial nerves II through XII are intact. No pain with extraocular muscle movement. There is negative test of skew. Normal speech. 5 of 5 strength in upper and lower extremities in flexion extension. Intact sensation to light touch in upper and lower extremity dermatomes. No truncal or extremity ataxia. No dysdiadochokinesia. Normal gait. 2+ reflexes. No meningeal signs. Negative Babinski. NIH of 0 Skin: No rash or lesions noted MEDICAL DECISION MAKING: Chief Complaint: Syncope External records reviewed: Seen for bradycardia in March 2021. EKG at that time showed sinus bradycardia with a ventricular rate of 35. EKG had normal MD interval with no obvious high degree block noted at that time. Factors affecting care: Bradycardia ALL IMAGES (IF OBTAINED) HAVE BEEN PERSONALLY REVIEWED AND INTERPRETED BY MYSELF. EKG with normal sinus rhythm, normal axis, no intervals, no STEMI, no WPW, no ARVD, no signs of Brugada syndrome [facility] Narrative: Patient was hemodynamically stable, afebrile, nontoxic-appearing. Exam without focal neurologic deficits. No focal cardiopulmonary abnormalities. I considered the following differential diagnosis: Arrhythmia, myocardial ischemia, WPW, ARVD, Brugada syndrome, subarachnoid hemorrhage, pulm embolism, aortic dissection, ectopic Patient was specifically concerned about being anemic. States been feeling fatigued and lightheaded for the greater part of last month. 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 Given patient concerned about anemia I did obtain blood work to rule out signs of systemic inflammation, anemia, electrolyte disturbances, myocardial ischemia, signs of heart failure. Labs and images were remarkable for severe anemia 6.7. Hemoccult negative. No evidence of myocardial schema with a negative troponin. test is pending. No evidence of heart failure with a negative BNP. Given the patient's severe anemia requiring blood transfusion she is appropriate for inpatient admission. Discussed with Dr. Valdez. The patient and/or family, caregivers express understanding. The patient and/or family, caregivers agrees with the plan. Shared decision making: I will have a discussion with the patient and or visitors regarding risk/benefits of further testing or admission. They will be made aware of of the risk/benefits inherent in this decision they will be given the opportunity to voice understanding. Total critical care time today provided was at least 0 [] minutes. This excludes separately billable procedures. Critical care time (if documented) is secondary to the patient having high probability of clinically significant/life threatening deterioration in the patient's condition which required my urgent intervention. Lab Data Attestation: I reviewed the patient's lab results. Lab results narrative: CBC without significant leukocytosis, there is severe anemia, there is no thrombocytopenia BMP without evidence of significant electrolyte abnormalities, no anion gap, no acute kidney injury. Troponin is negative, no evidence of myocardial ischemia BNP within normal limit suggestive of no increased myocardial stretch Stool occult test negative Labs: Laboratory Results - last 24 hr 10/27/22 13:35 WBC 6.8 RBC 3.24 L Hgb 6.7 L Hct 23.8 L MCV 73.5 L MCH 20.7 L MCHC 28.2 L RDW Std Deviation 41.7 RDW Coeff of Jay 15.6 H Plt Count 378 MPV 9.0 Immature Gran % (Auto) 0.600 Neut % (Auto) 59.3 Lymph % (Auto) 27.5 Davidson % (Auto) 6.1 Eos % (Auto) 5.6 H Baso % (Auto) 0.9 Absolute Neuts (auto) 4.1 Absolute Lymphs (auto) 1.88 Nucleated RBC % 0 Sodium 138 Potassium 4.1 Chloride 109 H Carbon Dioxide 26.0 Anion Gap 3 L BUN 12 Creatinine 0.75 Estim Creat Clear Calc 82.80 Est GFR (MDRD) Af Amer 114 Est GFR (MDRD) Non-Af 94 BUN/Creatinine Ratio 16.1 Glucose 100 Calcium 8.8 Troponin I High Sens < 3 L B-Natriuretic Peptide 13.1 Radiography Chest X-Ray - ED: Read by ED Physician Diagnostic Testing: Clinical Impression(s) from Imaging Studies Chest X-Ray 10/27/22 13:29 IMPRESSION: No radiographic evidence of acute cardiopulmonary disease. Hiatal hernia. Electronically Signed: Pretty Jamison MD at 14:03 EDT , I have personally reviewed the patient's chest x-ray. Chest x-ray is unremarkable for pulmonary edema, pneumothorax, pneumonia or focal cardiopulmonary abnormality. Discharge Plan Dx/Rx/DC Orders Clinical Impression: Anemia, Syncope Disposition Disposition: Acute Care Hospital [facility]
--- NOTE | 2022-10-27 13:06 | EKG12_ITS ---
Test Reason : CP Blood Pressure : / mmHG Vent. Rate : 068 BPM Atrial Rate : 068 BPM P-R Int : 192 ms QRS Dur : 074 ms QT Int : 380 ms P-R-T Axes : 023 -13 052 degrees QTc Int : 404 ms Normal sinus rhythm Low voltage QRS Borderline ECG When compared with ECG of 27-OCT-2022 13:13, MANUAL COMPARISON REQUIRED, DATA IS UNCONFIRMED Confirmed by LUIS ENRIQUE FELIX, ALAN ([id number]), field map editor TIMUR GUTIERREZ ([id number]) on 10/28/2022 1:21:28 PM Referred By: YOLANDA Confirmed By:ALAN DUDLEY MD
--- NOTE | 2022-10-27 13:13 | EKG12_ITS ---
Test Reason : Blood Pressure : / mmHG Vent. Rate : 075 BPM Atrial Rate : 075 BPM P-R Int : 172 ms QRS Dur : 078 ms QT Int : 376 ms P-R-T Axes : 020 000 042 degrees QTc Int : 419 ms Normal sinus rhythm Normal ECG Confirmed by TIM FELIX, POLO ([id number]), city editor TIMUR GUTIERREZ ([id number]) on 10/31/2022 8:41:02 AM Referred By: Confirmed By:DARLIN DUMONT MD
--- NOTE | 2022-10-27 13:29 | RAD_ITS ---
INDICATION: chest pain EXAMINATION/TECHNIQUE: X-RAY - XR Chest 1 View COMPARISON: Prior studies dated: April 03, [address] dated August 24, 2020 FINDINGS: LINES/DEVICES: None. LUNGS: No consolidation, edema or effusion. No pneumothorax. MEDIASTINUM AND CARDIOVASCULAR STRUCTURES: Cardiac silhouette not enlarged. There is a round opacity projecting over the cardiac silhouette consistent with a hiatal hernia. BONES AND SOFT TISSUES: Unremarkable. RAD/Chest 1 View (Portable) IMPRESSION: No radiographic evidence of acute cardiopulmonary disease. Hiatal hernia. Electronically Signed: Pretty Jamison MD at 14:03 EDT ,
[2022-10-27] MEDS: 0.9% Normal Saline 1,000 ML 1000 ML IV (13:45)
[2022-10-27 13:47] LABS: Absolute Lymphocyte Count 1.88 X10^3/uL (0.83-4.51); Absolute Neutrophil Count 4.1 X10^3/uL (2.0-7.7); Basophil# 0.06 X10^3/uL; Basophil% 0.9 % (0-1); Eosinophil# 0.38 X10^3/uL; Eosinophils% 5.6 % (0-5); Hematocrit 23.8 % (37-47); Hemoglobin 6.7 g/dL (12.0-15.0); Lymphocyte # 1.88 X10^3/ul (0.83-4.51); Lymphocyte % 27.5 % (19-41); Mean Corp Hgb Conc 28.2 g/dL (32-36); Mean Corpuscular Hgb 20.7 pg (27.0-32.0); Mean Corpuscular Volume 73.5 fL (81-99); Monocyte# 0.42 X10^3/uL; Monocyte% 6.1 % (0-10); NRBC Flagged by Analyzer 0 % (0-5); Neutrophil # 4.06 X10^3/uL (2.7-7.7); Neutrophil % 59.3 % (47-70); Platelet Count 378 K/mm3 (150-450); RBC Distribution Width CV 15.6 % (11.6-14.6); RBC Distribution Width SD 41.7 fl (35.1-43.9); Red Blood Count 3.24 M/mm3 (4.2-5.4); White Blood Count 6.8 K/mm3 (4.4-11.0)
[2022-10-27 13:58] LABS: BNP,B-Type NATRIURETIC PEPTIDE 13.1 pg/mL (0-100)
[2022-10-27 13:59] LABS: Anion Gap 3 (5-15); BUN 12 mg/dL (7-18); BUN/Creat Ratio 16.1 RATIO (10-20); Calcium,Total 8.8 mg/dL (8.5-10.1); Chloride 109 mmol/L (98-107); Creatinine, Serum 0.75 mg/dL (0.55-1.02); EST Glomerular Filtration Rate 94 mL/min (>60); Est Glom Filt Rate - Afr Amer 114 mL/min (>60); Glucose 100 mg/dL (74-106); Potassium 4.1 mmol/L (3.5-5.1); Sodium Level 138 mmol/L (136-145); Troponin-I HS < 3 pg/mL (3.0-54.0)
--- NOTE | 2022-10-27 14:37 | PCM.HP.STD ---
HPI - General General Date of Admission: 10/27/22 Date of Service: 10/27/22 Chief Complaint: Passed out HPI Narrative SHIRLEY CHARLES, is a 37 F who presents presented emergency department after passing out. Per patient she did experience. Of lightheadedness prior to passing out. She also complains of feeling weak over the past couple of days. On further questioning patient denied any heavy menses on the contrary menses have been light. Patient however did admit to using ibuprofen more than this history for headaches. She denied any melenic stools. In the emergency department patient was found to be anemic with hemoglobin of 6.7. She was also found to have significant microcytosis with MCV of 73.5. She was subsequently admitted to a monitored bed for further management [facility] Medical History Asthma Home Medications albuterol sulfate 90 mcg/actuation aerosol inhaler 1 - 2 puff inhalation Q4H PRN shortness of breath./wheezing 10/27/22 [History Last Taken 10/25/22] Allergy/AdvReac Type Severity Reaction Status Date / Time No Known Allergies Allergy Verified 12/31/21 20:07 Family History no significant family his no significant family history Social History Smoking Status: Never smoker substance use type: does not use ROS ROS Narrative GENERAL: Fatigue HEENT: denies headache, sinus congestion, or drainage, dysphagia RESPIRATORY: denies cough, sputum production, shortness of breath, dyspnea on exertion CARDIAC: denies chest pain, palpitations, orthopnea, PND GASTROINTESTINAL: denies abdominal pain, nausea, vomiting, melena, GENITOURINARY: denies dysuria, urgency, frequency, heamaturia EXTREMITY: denies swelling MUSCULOSKELETAL: denies current joint pain or tenderness NEUROLOGIC: denies focal numbness, weakness, tingling HEMATOLOGIC: denies easy bruising and/or hemorrhage INTEGUMENT: denies rashes PSYCHIATRIC: denies suicidal or homicidal ideation Vital Signs Vital Signs Vital Signs: 10/27/22 12:59 10/27/22 12:58 10/27/22 13:47 Temperature 96.2 F L Temperature Source Temporal Pulse Rate 82 Respiratory Rate 18 Respiratory Pattern Normal Blood Pressure 99/64 Blood Pressure Mean 75 Pulse Ox 99 Oxygen Delivery Method Room Air Room Air Weight Weight: 73.21 kg Body Mass Index (BMI) 29.5 Physical Exam Narrative GENERAL: cooperative HEENT: Atraumatic; normocephalic EYES; Anicteric, pallor of the conjunctiva NECK; supple, normal thyroid, RESPIRATORY: Diminished to auscultation CARDIOVASCULAR: Regular S1 S2, GI: soft, normoactive bowel sounds, : No Renal angle tenderness; EXTREMITIES: No edema, no clubbing, MUSCULOSKELETAL: no muscle wasting NEURO: Awake; no lateralizing signs. SKIN: No Rash PSYCH; Flat affect Results Lab / Micro Data 10/27/22 13:35 10/27/22 13:35 Labs: Laboratory Results - last 24 hr 10/27/22 13:35: WBC 6.8, RBC 3.24 L, Hgb 6.7 L, Hct 23.8 L, MCV 73.5 L, MCH 20.7 L, MCHC 28.2 L, RDW Std Deviation 41.7, RDW Coeff of Jay 15.6 H, Plt Count 378, MPV 9.0, Immature Gran % (Auto) 0.600, Neut % (Auto) 59.3, Lymph % (Auto) 27.5, Dundy % (Auto) 6.1, Eos % (Auto) 5.6 H, Baso % (Auto) 0.9, Absolute Neuts (auto) 4.1, Absolute Lymphs (auto) 1.88, Nucleated RBC % 0, Sodium 138, Potassium 4.1, Chloride 109 H, Carbon Dioxide 26.0, Anion Gap 3 L, BUN 12, Creatinine 0.75, Estim Creat Clear Calc 82.80, Est GFR (MDRD) Af Amer 114, Est GFR (MDRD) Non-Af 94, BUN/Creatinine Ratio 16.1, Glucose 100, Calcium 8.8, Troponin I High Sens < 3 L, B-Natriuretic Peptide 13.1 Micro: Microbiology 10/27/22 14:05 Stool Stool Occult Blood (RD) - Final Radiology Impression Chest X-Ray 10/27/22 13:29 IMPRESSION: No radiographic evidence of acute cardiopulmonary disease. Hiatal hernia. Electronically Signed: Pretty Jamison MD at 14:03 EDT Reading Location ID and State: [facility] / [place] Tel , Service support , Assessment & Plan Assessment/Plan (1) Anemia: QUALIFIERS: Anemia type: iron deficiency Iron deficiency anemia type: chronic blood loss Qualified Code(s): D50.0 - Iron deficiency anemia secondary to blood loss (chronic) PLAN: Plan Patient is a 37-year-old lady presented with a syncopal episode found to have significant anemia with hemoglobin of 6.7 1. Symptomatic anemia ? Admitted to a monitored bed. Patient was typed and crossmatched and order given for patient to be transfused with 1 unit PRBC 2. Microcytic anemia ? Suspect is a induced gastritis versus peptic ulcer disease. Patient was started on octreotide and Protonix drip after discussion with Dr. Ann with GI. Patient be kept n.p.o. for possible endoscopic evaluation in the morning 3. Syncopal episode ? Suspected to be secondary to patient symptomatic anemia placed on continuous telemetry monitoring. Ordered 2D echo 4. Mild intermittent asthma ? Currently not in exacerbation aerosol treatment as needed 5. Overweight with BMI 29.5 ? Weight loss advised 6. DVT prophylaxis ? Chemoprophylaxis contraindicated in view of patient presenting complaints. Ambulation encouraged Time spent in the patient's overall evaluation,decision-making process, review of diagnostic data, adjustment of management, discussion with other providers, nursing nursing and ancillary staff involved in patient's care documentation, 60 minutes Charges/Coding Visit Charges Inpatient E&M: 93595 Init Hosp L2
[2022-10-27 14:48] LABS: Platelet Count 410 K/mm3 (150-450); RET-HE 15.1 pg (30-35); Reticulocyte Count 2.11 % (0.5-1.5)
--- NOTE | 2022-10-27 14:52 | ECHOD_ITS ---
Reason For Study: SYNCOPE Procedure This was a 2D Doppler, Color Flow transthoracic echocardiogram. Exam performed portable in patient room. Left Ventricle Normal LV size. The estimated ejection fraction is 60 %. No evidence for diastolic dysfunction. No regional wall motion abnormalities noted. Right Ventricle Normal RV size. Normal systolic function. Atria Normal left atrium. Normal right atrium. No doppler evidence for ASD. Mitral Valve There is no mitral valve stenosis. Trivial mitral valve insufficiency. Tricuspid Valve There is no tricuspid stenosis. Trivial tricuspid valve insufficiency. Pulmonary artery systolic pressure is 20 mmHg. Aortic Valve The aortic valve is not well visualized in the short axis view. There is no aortic stenosis. No aortic valve insufficiency. Pulmonic Valve There is no pulmonic valvular stenosis. No pulmonic valve insufficiency. Great Vessels Normal aortic root. Pericardium/Pleural No pericardial effusion. MMode/2D Measurements & Calculations LVIDd: 4.2 cm IVSd: 0.80 cm Ao root diam: 2.6 cm LVIDs: 2.9 cm LVPWd: 0.91 cm RVDd: 3.5 cm FS: 30.0 % LAV(MOD-bp): 47.5 ml LVAd ap4: 26.8 cm2 SV(MOD-sp4): 45.3 ml LAV(MOD-bp) Indexed: 27.2 ml/m2 LVLd ap4: 8.4 cm LAV(MOD-sp2): 48.1 ml EDV(MOD-sp4): 72.2 ml LAV(MOD-sp4): 36.8 ml EDV(sp4-el): 72.3 ml LVAs ap4: 14.3 cm2 LVLs ap4: 6.4 cm ESV(MOD-sp4): 26.9 ml ESV(sp4-el): 26.8 ml EF(MOD-sp4): 62.7 % EF(sp4-el): 62.9 % SV(sp4-el): 45.4 ml LA A4 area: 16.4 cm2 LA dimension(2D): 3.5 cm RA A4 area: 15.6 cm2 TAPSE: 2.9 cm Time Measurements MV dec time: 0.21 sec Doppler Measurements & Calculations MV E max vern: 96.0 cm/sec Lat Peak E' Vern: 19.3 cm/sec Med Peak E' Vern: 14.5 cm/sec MV A max vern: 58.9 cm/sec E/E' lat: 5.0 E/E' med: 6.6 MV E/A: 1.6 MV V2 max: 111.1 cm/sec Ao V2 max: 158.5 cm/sec MV max P.0 mmHg MV dec slope: 453.1 cm/sec2 Ao max P.1 mmHg MV V2 mean: 52.4 cm/sec Ao V2 mean: 101.9 cm/sec MV mean P.4 mmHg Ao mean P.9 mmHg MV V2 VTI: 33.4 cm Ao V2 VTI: 34.3 cm AV (velocity ratio): 0.87 LV V1 max: 120.7 cm/sec PA V2 max: 107.0 cm/sec LV V1 max P.8 mmHg PA V2 mean: 73.9 cm/sec LV V1 mean P.3 mmHg LV V1 mean: 85.7 cm/sec LV V1 VTI: 29.9 cm ECHO/Echo Complete Interpretation Summary The estimated ejection fraction is 60 %. No evidence for diastolic dysfunction. Trivial mitral valve insufficiency. Ordering Physician: Jamar Valdez Referring Physician: Dang Arceo M.D. Performed By: Emilia Anderson RCS
[2022-10-27 14:57] LABS: Iron 8 ug/dL (50-170); Iron Binding Capacity,Total 491 ug/dL (250-450); PERCENT IRON SATURATION 1.6 % (15.0-55.0)
[2022-10-27 15:02] LABS: Internal QC Validated? YES +Cl - CLEAR BKGD; Pregnancy, Urine Negative Negative
[2022-10-27] MEDS: 0.9% Normal Saline 1,000 ML 75 ML IV (17:59)
[2022-10-27] MEDS: 0.9% Saline Lock 10 ML Syringe IV (18:04)
[2022-10-27] MEDS: Montelukast 10 MG Tablet PO (22:55)
[2022-10-28 04:55] VITALS: BP 118/74; PULSE 71; RESP 18; TEMP 36.4; O2SAT 98
[2022-10-28 06:30] LABS: Absolute Lymphocyte Count 1.42 X10^3/uL (0.83-4.51); Absolute Neutrophil Count 5.9 X10^3/uL (2.0-7.7); Basophil# 0.05 X10^3/uL; Basophil% 0.6 % (0-1); Eosinophil# 0.16 X10^3/uL; Hematocrit 27.9 % (37-47); Hemoglobin 8.1 g/dL (12.0-15.0); Lymphocyte # 1.42 X10^3/ul (0.83-4.51); Lymphocyte % 17.8 % (19-41); Mean Corpuscular Hgb 21.7 pg (27.0-32.0); Mean Corpuscular Volume 74.6 fL (81-99); Mean Platelet Vol. 9.4 fl (6.2-12.0); Monocyte# 0.39 X10^3/uL; Monocyte% 4.9 % (0-10); NRBC Flagged by Analyzer 0 % (0-5); Neutrophil # 5.94 X10^3/uL (2.7-7.7); Neutrophil % 74.2 % (47-70); Platelet Count 409 K/mm3 (150-450); RBC Distribution Width CV 16.5 % (11.6-14.6); RBC Distribution Width SD 44.4 fl (35.1-43.9); Red Blood Count 3.74 M/mm3 (4.2-5.4)
[2022-10-28 06:56] LABS: Anion Gap 3 (5-15); BUN 8 mg/dL (7-18); BUN/Creat Ratio 10.4 RATIO (10-20); Calcium,Total 8.5 mg/dL (8.5-10.1); Chloride 111 mmol/L (98-107); Creatinine, Serum 0.77 mg/dL (0.55-1.02); EST Glomerular Filtration Rate 91 mL/min (>60); Est Glom Filt Rate - Afr Amer 110 mL/min (>60); Estimated Creatinine Clearance 80.65 ml/min; Glucose 101 mg/dL (74-106); Potassium 4.4 mmol/L (3.5-5.1); Sodium Level 138 mmol/L (136-145)
[2022-10-28] MEDS: Morphine 2 MG/ML Syringe IV (07:03)
[2022-10-28] MEDS: Ondansetron 4 MG/2 ML Vial IV ×2 (07:06→20:50)
[2022-10-28 07:30] LABS: Bedside Glucose 105 mg/dL (74-106)
[2022-10-28 07:41] VITALS: O2SAT 96
[2022-10-28 08:24] LABS: Vitamin B12 492 pg/mL (211-911)
--- NOTE | 2022-10-28 08:57 | PN.HOSP_ITS ---
Reason for Visit Reason for Visit: Diagnoses Iron deficiency anemia secondary to blood loss (chronic) (10/27/22) Subjective Subjective No further events. Does note that she had a near syncopal event earlier in the month. States her menstrual periods have bee light for the past several months. Objective Data Objective Data Vital Signs: Vital Signs Temp Pulse Resp BP Pulse Ox O2 Del Method 36.4 C L 71 18 118/74 96 Room Air 10/28/22 04:55 10/28/22 04:55 10/28/22 04:55 10/28/22 04:55 10/28/22 07:41 10/28/22 07:41 Oxygen Delivery Method Room Air Weight: 73.8 kg Body Mass Index (BMI) 29.7 Intake & Output: Intake and Output for Last 24 Hours 10/26/22 10/27/22 10/28/22 23:59 23:59 23:59 Intake Total 1722.5 / 1722.5 900 / 900 Balance 1722.5 / 1722.5 900 / 900 Lab / Micro Data 10/28/22 06:00 10/28/22 06:00 Labs: Laboratory Results - last 24 hr 10/27/22 13:35: WBC 6.8, RBC 3.24 L, Hgb 6.7 L, Hct 23.8 L, MCV 73.5 L, MCH 20.7 L, MCHC 28.2 L, RDW Std Deviation 41.7, RDW Coeff of Jay 15.6 H, Plt Count 378, MPV 9.0, Immature Gran % (Auto) 0.600, Neut % (Auto) 59.3, Lymph % (Auto) 27.5, [place] % (Auto) 6.1, Eos % (Auto) 5.6 H, Baso % (Auto) 0.9, Absolute Neuts (auto) 4.1, Absolute Lymphs (auto) 1.88, Nucleated RBC % 0, Retic Count 2.11 H, Immatur e Retic Fraction 31.10 H, Retic Hgb Equivalent 15.1 L, Sodium 138, Potassium 4.1, Chloride 109 H, Carbon Dioxide 26.0, Anion Gap 3 L, BUN 12, Creatinine 0.75, Estim Creat Clear Calc 82.80, Est GFR (MDRD) Af Amer 114, Est GFR (MDRD) Non-Af 94, BUN/Creatinine Ratio 16.1, Glucose 100, Calcium 8.8, Iron 8 L, TIBC 491 H, Iron Saturation 1.6 L, Troponin I High Sens < 3 L, B-Natriuretic Peptide 13.1 10/27/22 13:58: Crossmatch See Detail 10/27/22 14:20: Blood Type O POSITIVE, Antibody Screen NEGATIVE 10/27/22 14:37: Crossmatch See Detail 10/27/22 14:52: Urine Test Negative 10/28/22 06:00: WBC 8.0, RBC 3.74 L, Hgb 8.1 L, Hct 27.9 L, MCV 74.6 L, MCH 21.7 L, MCHC 29.0 L, RDW Std Deviation 44.4 H, RDW Coeff of Jay 16.5 H, Plt Count 409, MPV 9.4, Immature Gran % (Auto) 0.500, Neut % (Auto) 74.2 H, Lymph % (Auto) 17.8 L, [place] % (Auto) 4.9, Eos % (Auto) 2.0, Baso % (Auto) 0.6, Absolute Neuts (auto) 5.9, Absolute Lymphs (auto) 1.42, Nucleated RBC % 0, Sodium 138, Potassium 4.4, Chloride 111 H, Carbon Dioxide 24.0, Anion Gap 3 L, BUN 8, Creatinine 0.77, Estim Creat Clear Calc 80.65, Est GFR (MDRD) Af Amer 110, Est GFR (MDRD) Non-Af 91, BUN/Creatinine Ratio 10.4, Glucose 101, Calcium 8.5, Vitamin B12 492 10/28/22 06:42: POC Glucose 105 Micro: Microbiology 10/27/22 14:05 Stool Stool Occult Blood (RD) - Final Radiography Diagnostic Testing: Radiology Impression Chest X-Ray 10/27/22 13:29 IMPRESSION: No radiographic evidence of acute cardiopulmonary disease. Hiatal hernia. Electronically Signed: Pretty Jamison MD at 14:03 EDT , Physical Exam Const alert and no apparent distress HEENT head/scalp atraumatic and moist oral mucous membranes Neck no lymphadenopathy Resp normal respiratory effort and no retractions Cardio regular rate, regular rhythm, S1 normal heart sound and S2 normal heart sound GI normal to inspection, nondistended, normoactive bowel sounds, soft to palpation and non-tender Extremity normal to inspection Assessment & Plan Assessment/Plan (1) Anemia: QUALIFIERS: Anemia type: iron deficiency Iron deficiency anemia type: chronic blood loss Qualified Code(s): D50.0 - Iron deficiency anemia secondary to blood loss (chronic) PLAN: microcytic, iron-deficient transfused 1 unit PRBCs GI consulted Start IV iron. Pt is not a vegan, but does not eat red meat. (2) Syncope: QUALIFIERS: Syncope type: unspecified Qualified Code(s): R55 - Syncope and collapse PLAN: 2/2 anemia monitor PLAN: Plan Chronic conditions: * Mild intermittent asthma? Currently not in exacerbation aerosol treatment as needed * Overweight with BMI 29.5? Weight loss advised DVT prophylaxis ? Chemoprophylaxis contraindicated in view of patient presenting complaints. Ambulation encouraged Charges/Coding Visit Charges Inpatient E&M: 03563 Subs Hosp L2
[2022-10-28 10:09] VITALS: BP 105/71; PULSE 59; RESP 16; TEMP 36.8; O2SAT 99
--- NOTE | 2022-10-28 11:30 | CASEMGMT ---
RN REUBEN Face to Face with patient for initial transition planning/care coordination assessment. RN CM introduced self and role at [facility]. Patient lying in bed, alert and oriented, at bedside. Patient willing to participate in assessment and is able to answer all questions appropriately. Care providers, pharmacy, and demographics verified. Patient wishes to discharge home, denies need for home health at this time. Patient states she has no further needs or concerns at this time. CM to follow for discharge planning needs that may arise. PCP: Adis Specialists: MARCELA ONEILL functional medicine Preferred [facility]acy: [facility] Insurance: [employer] Prescription Benefit: yes Living Will/HPOA: none LNOK: Living Arrangements: Patient lives with in a 2 story home. Patient is independent and able to ambulate stairs. Transportation: self, DME/HHC: Patient denies DME in the home. Patient denies previous HHC or SNF Disposition Plan: Patient to discharge home with family support and follow-up plans in place. Mel MELENDEZN, RN, CM
[2022-10-28 13:47] VITALS: BP 103/68; PULSE 64; RESP 16; TEMP 36.7; O2SAT 100
[2022-10-28] MEDS: Sodium Ferric Gluconat 250 MG in 0.9% Normal Saline 250 ML 135 MG IV (16:11)
[2022-10-28 16:24] VITALS: BP 93/62; PULSE 61; RESP 16; TEMP 36.8; O2SAT 100
[2022-10-28] MEDS: Acetaminophen 325 MG Tablet 650 MG PO (16:36)
--- NOTE | 2022-10-28 16:59 | EX.PCM.CON.G ---
HPI Consult Data Date of Consult: 10/28/22 HPI Narrative Reason for Consultation: Anemia HPI Narrative: SHIRLEY CHARLES, is a 37 F who presents presented emergency department after passing out. Per patient she did experience. Of lightheadedness prior to passing out. She also complains of feeling weak over the past couple of days. On further questioning patient denied any heavy menses on the contrary menses have been light. Patient however did admit to using ibuprofen more than this history for headaches. She denied any melenic stools. In the emergency department patient was found to be anemic with hemoglobin of 6.7. She was also found to have significant microcytosis with MCV of 73.5. She was subsequently admitted to a monitored bed for further management [facility] Medical History Asthma Home Medications albuterol sulfate 90 mcg/actuation aerosol inhaler 1 - 2 puff inhalation Q4H PRN shortness of breath./wheezing 10/27/22 [History Last Taken 10/25/22] Allergy/AdvReac Type Severity Reaction Status Date / Time No Known Allergies Allergy Verified 12/31/21 20:07 Family History no significant family his Social History Smoking Status: Never smoker substance use type: does not use ROS ROS Narrative GENERAL: Fatigue HEENT: denies headache, sinus congestion, or drainage, dysphagia RESPIRATORY: denies cough, sputum production, shortness of breath, dyspnea on exertion CARDIAC: denies chest pain, palpitations, orthopnea, PND GASTROINTESTINAL: denies abdominal pain, nausea, vomiting, melena, GENITOURINARY: denies dysuria, urgency, frequency, heamaturia EXTREMITY: denies swelling MUSCULOSKELETAL: denies current joint pain or tenderness NEUROLOGIC: denies focal numbness, weakness, tingling HEMATOLOGIC: denies easy bruising and/or hemorrhage INTEGUMENT: denies rashes PSYCHIATRIC: denies suicidal or homicidal ideation Physical Exam Const alert and no apparent distress HEENT head/scalp atraumatic and moist oral mucous membranes Neck no lymphadenopathy Resp normal respiratory effort and no retractions Cardio regular rate, regular rhythm, S1 normal heart sound and S2 normal heart sound GI normal to inspection, nondistended, normoactive bowel sounds, soft to palpation and non-tender Extremity normal to inspection Lab / Micro Data 10/28/22 06:00 10/28/22 06:00 Labs: Laboratory Results - last 24 hr 10/27/22 13:58: Crossmatch See Detail 10/28/22 06:00: WBC 8.0, RBC 3.74 L, Hgb 8.1 L, Hct 27.9 L, MCV 74.6 L, MCH 21.7 L, MCHC 29.0 L, RDW Std Deviation 44.4 H, RDW Coeff of Jay 16.5 H, Plt Count 409, MPV 9.4, Immature Gran % (Auto) 0.500, Neut % (Auto) 74.2 H, Lymph % (Auto) 17.8 L, [place] % (Auto) 4.9, Eos % (Auto) 2.0, Baso % (Auto) 0.6, Absolute Neuts (auto) 5.9, Absolute Lymphs (auto) 1.42, Nucleated RBC % 0, Sodium 138, Potassium 4.4, Chloride 111 H, Carbon Dioxide 24.0, Anion Gap 3 L, BUN 8, Creatinine 0.77, Estim Creat Clear Calc 80.65, Est GFR (MDRD) Af Amer 110, Est GFR (MDRD) Non-Af 91, BUN/Creatinine Ratio 10.4, Glucose 101, Calcium 8.5, Vitamin B12 492 10/28/22 06:42: POC Glucose 105 Micro: Microbiology 10/27/22 14:05 Stool Stool Occult Blood (RD) - Final Radiology Impression Echocardiogram 10/27/22 14:52 Interpretation Summary The estimated ejection fraction is 60 %. No evidence for diastolic dysfunction. Trivial mitral valve insufficiency. Ordering Physician: Jamar Valdez Referring Physician: Dang Arceo M.D. Performed By: Emilia Anderson RCS Assessment & Plan Assessment/Plan (1) Anemia: QUALIFIERS: Anemia type: iron deficiency Iron deficiency anemia type: chronic blood loss Qualified Code(s): D50.0 - Iron deficiency anemia secondary to blood loss (chronic) PLAN: Plan Patient is a 37-year-old lady presented with a syncopal episode found to have significant anemia with hemoglobin of 6.7 Symptomatic anemia ? Admitted to a monitored bed. Patient was typed and crossmatched and order given for patient to be transfused with 1 unit PRBC Microcytic anemia ? Suspect is a induced gastritis versus peptic ulcer disease. Stop Protonix drip and octreotide. I will send labs for celiac disease. She should undergo upper and lower endoscopy while she is in the hospital. Charges/Coding Visit Charges Inpatient E&M: 83905 Init Hosp L3
[2022-10-28] MEDS: Bisacodyl 5 MG Tablet 20 MG PO (19:13)
[2022-10-28] MEDS: Polyethylene Glycol 3350 BOWEL PREP PO (20:52)
[2022-10-28] MEDS: Montelukast 10 MG Tablet PO (20:57)
[2022-10-28 22:09] VITALS: BP 102/62; PULSE 58; RESP 18; TEMP 36; O2SAT 100
[2022-10-29] VITALS (12 sets, daily range): BP systolic 86–112; BP diastolic 42–64; PULSE 50–78; RESP 16–18; TEMP 36.1–36.8; O2SAT 94–100; BMI 29.7
[2022-10-29 06:08] LABS: Absolute Lymphocyte Count 1.87 X10^3/uL (0.83-4.51); Absolute Neutrophil Count 4.4 X10^3/uL (2.0-7.7); Basophil# 0.04 X10^3/uL; Basophil% 0.6 % (0-1); Eosinophil# 0.47 X10^3/uL; Eosinophils% 6.5 % (0-5); Hematocrit 26.3 % (37-47); Hemoglobin 7.6 g/dL (12.0-15.0); Lymphocyte # 1.87 X10^3/ul (0.83-4.51); Lymphocyte % 25.8 % (19-41); Mean Corp Hgb Conc 28.9 g/dL (32-36); Mean Platelet Vol. 9.8 fl (6.2-12.0); Monocyte# 0.44 X10^3/uL; Monocyte% 6.1 % (0-10); NRBC Flagged by Analyzer 0.3 % (0-5); Neutrophil # 4.37 X10^3/uL (2.7-7.7); Neutrophil % 60.3 % (47-70); Platelet Count 366 K/mm3 (150-450); RBC Distribution Width CV 16.9 % (11.6-14.6); RBC Distribution Width SD 45.8 fl (35.1-43.9); Red Blood Count 3.46 M/mm3 (4.2-5.4); White Blood Count 7.2 K/mm3 (4.4-11.0)
--- NOTE | 2022-10-29 08:27 | PN.HOSP_ITS ---
Reason for Visit Reason for Visit: Diagnoses Iron deficiency anemia secondary to blood loss (chronic) (10/27/22) Syncope and collapse (10/27/22) Subjective Subjective Feels well. Does state that she take ibuprofen, up to 400mg/daily, for daily hea daches. Does have migraines, which are different for her. Daily, she experiences at least a frontal headache. Has seen neurology in the past. Objective Data Objective Data Vital Signs: Vital Signs Temp Pulse Resp BP Pulse Ox O2 Del Method 36.8 C 63 18 95/57 L 94 Room Air 10/29/22 07:58 10/29/22 07:58 10/29/22 07:58 10/29/22 07:58 10/29/22 07:58 10/29/22 07:58 Oxygen Delivery Method Room Air Weight: 73.8 kg Body Mass Index (BMI) 29.7 Intake & Output: Intake and Output for Last 24 Hours 10/27/22 10/28/22 10/29/22 23:59 23:59 23:59 Intake Total 1722.5 / 1722.5 2665.50 / 2665.50 326.46 / 326.46 Balance 1722.5 / 1722.5 2665.50 / 2665.50 326.46 / 326.46 Lab / Micro Data 10/29/22 05:01 10/28/22 06:00 Labs: Laboratory Results - last 24 hr 10/29/22 05:01: WBC 7.2, RBC 3.46 L, Hgb 7.6 L, Hct 26.3 L, MCV 76.0 L, MCH 22.0 L, MCHC 28.9 L, RDW Std Deviation 45.8 H, RDW Coeff of Jay 16.9 H, Plt Count 366, MPV 9.8, Immature Gran % (Auto) 0.700, Neut % (Auto) 60.3, Lymph % (Auto) 25.8, [place] % (Auto) 6.1, Eos % (Auto) 6.5 H, Baso % (Auto) 0.6, Absolute Neuts (auto) 4.4, Absolute Lymphs (auto) 1.87, Nucleated RBC % 0.3 Micro: Microbiology 10/27/22 14:05 Stool Stool Occult Blood (RD) - Final Radiography Diagnostic Testing: Radiology Impression Echocardiogram 10/27/22 14:52 Interpretation Summary The estimated ejection fraction is 60 %. No evidence for diastolic dysfunction. Trivial mitral valve insufficiency. Ordering Physician: Jamar Valdez Referring Physician: Dang Arceo M.D. Performed By: Emilia Anderson RCS Physical Exam Const alert and no apparent distress Resp normal respiratory effort, no retractions, no use of accessory muscles and clear to auscultation bilaterally Neuro Sensorium / Orientation: awake and alert Assessment & Plan Assessment/Plan (1) Anemia: QUALIFIERS: Anemia type: iron deficiency Iron deficiency anemia type: chronic blood loss Qualified Code(s): D50.0 - Iron deficiency anemia secondary to blood loss (chronic) PLAN: microcytic, iron-deficient transfused 1 unit PRBCs GI consulted Start IV iron. Pt is not a vegan, but does not eat red meat. Patient had hemoglobin earlier this year in March where it was 13.3. (2) Syncope: QUALIFIERS: Syncope type: unspecified Qualified Code(s): R55 - Syncope and collapse PLAN: 2/2 anemia monitor (3) Migraine: QUALIFIERS: Migraine type: without aura Status migrainosus presence: without status migrainosus Intractability: not intractable Qualified Code(s): G43.009 - Migraine without aura, not intractable, without status migrainosus PLAN: chronic has classic migraines, but also been told she has tension-type headaches. will start amitriptyline for prophylaxis and recommend that she follow up with neurology as outpt. (4) Peptic ulcer disease: PLAN: Noted on EGD. Report pending at the time of this documentation. On PPI Advised against further NSAIDs, including ibuprofen and Naprosyn. PLAN: Plan Chronic conditions: * Mild intermittent asthma? Currently not in exacerbation aerosol treatment as needed * Overweight with BMI 29.5? Weight loss advised DVT prophylaxis ? Chemoprophylaxis contraindicated in view of patient presenting complaints. Ambulation encouraged Charges/Coding Visit Charges Inpatient E&M: 06039 Subs Hosp L2
--- NOTE | 2022-10-29 10:19 | NURSING ---
Patient left unit to OR
[2022-10-29] MEDS: 0.9% Normal Saline 1,000 ML 15 ML IV (10:52)
--- NOTE | 2022-10-29 11:30 | EGD_PTH ---
PATIENT: SHIRLEY CHARLES LOC: [facility] U#:[id number] AGE/SX: 37/F ROOM: [facility] RE10/27/[address]: Dr. Geo Ortega DO : 1985 BED: 1 DIS: 10/30/2022 SPEC #: [id number] RECD: 10/29/22 13:33 STATUS: HANDY RESeema #: [id number] CARLEE: 10/29/22 11:[address]: Varinder Ann DEPT: SURGICAL PATHOLOGY RECD BY: Tanisha Moreno ENTERED: 10/30/22 09:32 SP TYPE: EGD BIOPSY OTHR DR: MD Dr. Geo Shah DO Dr. Liza D Talampas, MD Tissues: A - Duodenum, NOS B - Gastric mucous membrane C - Esophagus, NOS Procedures: Special Stain Group II Surgery Specimen Level IV Alcian Blue/PAS (control) Comments: @ Ordering doctor for SUIV edited from to @ by LOIS at 10/30/22 1024 @ Submitting doctor edited from to @ by RGOOD at 10/30/22 1024 HEADER OPERATION: Colonoscopy, EGD, biopsy PRE-OP DIAGNOSIS: Anemia TISSUE SUBMITTED: A - Duodenum biopsy, B - Gastric antrum for histo and H. pylori, C - Distal esophagus biopsy MICROSCOPIC DIAGNOSIS A. Duodenum, biopsy: Fragments of duodenal mucosa with moderate acute and chronic inflammation, extensive gastric metaplasia and reactive changes. B. Gastric antrum, biopsy: Moderate gastritis. See microscopic description and comment. C. Distal esophagus, biopsy: A fragment of gastroesophageal mucosa with moderate chronic inflammation. Intestinal metaplasia (goblet cell metaplasia) not identified. Focal changes consistent with eosinophilic esophagitis. See comment. SJ:rg 10/31/2022 COMMENT B. The results of immunohistochemistry for Helicobacter pylori will be reported separately ([id number]). C. Alcian blue/PAS stain with matched control is used in the evaluation of the specimen. Increased number of eosinophils (>20 per high power field) are noted consistent with eosinophilic esophagitis. Correlation with clinical, endoscopic findings and appropriate follow-up are necessary. MICROSCOPIC DESCRIPTION Slides are reviewed. B. The specimen shows fragments of gastric mucosa with chronic inflammatory cell infiltrates in the lamina propria consisting of lymphocytes and plasma cells, consistent with moderate chronic gastritis. GROSS DESCRIPTION A - Received in fixative is one container labeled with the patient's name and designated duodenal ulcer biopsy. The specimen consists of multiple irregular fragments of light ingram soft tissue that in aggregate measure 1.5 x 0.6 x 0.1 cm. The specimen is totally submitted in one cassette. B - Received in fixative is one container labeled with the patient's name and designated gastric antrum. The specimen consists of two irregular fragments of light ingram soft tissue that in aggregate measure 0.7 x 0.6 x 0.1 cm. The specimen is totally submitted in one cassette. C - Received in fixative is one container labeled with the patient's name and designated distal esophagus. The specimen consists of one irregular fragment of light ingram soft tissue that measures 0.5 x 0.5 x 0.1 cm. The specimen is totally submitted in one cassette. / AM:maliha 10/30/2022 TC:3 CPT: 57774 x3, 10929
--- NOTE | 2022-10-29 11:30 | IMM_PTH ---
PATIENT: SHIRLEY CHARLES LOC: [facility] U#:[id number] AGE/SX: 37/F ROOM: [facility] RE10/27/[address]: Dr. Geo Ortega DO : 1985 BED: 1 DIS: 10/30/2022 SPEC #: [id number] RECD: 10/30/22 10:23 STATUS: HANDY RESeema #: [id number] CARLEE: 10/29/22 11:[address]: Ra Sethhsaan DEPT: IMMUNOHISTOCHEMISTRY RECD BY: Shira Camacho ENTERED: 10/30/22 10:24 SP TYPE: IMMUNO OTHR DR: MD Dr. Geo Shah DO Dr. Liza D Talampas, MD Tissues: B - Stomach, NOS Procedures: H Pylori (initial) PHYSICIAN & INSTITUTION [place] [address] SPECIMEN INFORMATION: Tissue Source: B - Gastric antrum Clinical Info: Viviana Specimen Number: [id number] CPT code: 49058 METHODOLOGY: Deparaffinized sections of prefer/formalin-fixed tissue or PAP/DQ stained slides are incubated with monoclonal/polyclonal antibodies/oligonucleotide probes. Localization is made via biotin free immunoperoxidase method. Appropriate controls are performed and reacted as expected. Results on target cell population are indicated in the following table: RESULTS: ANTIBODY / CLONE RESULT Block B H Pylori (polyclonal) negative These tests were developed and their performance characteristics determined by [facility]. They may not have been cleared or approved by the U.S. Food and Drug Administration. The FDA has determined that such clearance or approval is not necessary. The above immunohistochemical/dualISH markers are ordered and reviewed by the Pathologist. INTERPRETATION: B. Gastric antrum, biopsy: Negative for Helicobacter pylori organisms. NEELAM:maliha 10/31/2022
--- NOTE | 2022-10-29 13:15 | NURSING ---
Patient returned to the unit from PACU
[2022-10-29] MEDS: Montelukast 10 MG Tablet PO (21:12)
[2022-10-30 03:00] VITALS: BP 115/58; PULSE 56; RESP 18; TEMP 36.8; O2SAT 94
[2022-10-30 06:18] LABS: Absolute Lymphocyte Count 1.51 X10^3/uL (0.83-4.51); Absolute Neutrophil Count 11.9 X10^3/uL (2.0-7.7); Basophil# 0.02 X10^3/uL; Basophil% 0.1 % (0-1); Hematocrit 25.4 % (37-47); Hemoglobin 7.2 g/dL (12.0-15.0); Lymphocyte # 1.51 X10^3/ul (0.83-4.51); Lymphocyte % 10.6 % (19-41); Mean Corp Hgb Conc 28.3 g/dL (32-36); Mean Corpuscular Hgb 21.7 pg (27.0-32.0); Mean Corpuscular Volume 76.5 fL (81-99); Mean Platelet Vol. 9.4 fl (6.2-12.0); Monocyte# 0.59 X10^3/uL; Monocyte% 4.1 % (0-10); NRBC Flagged by Analyzer 0.4 % (0-5); Neutrophil # 11.89 X10^3/uL (2.7-7.7); Neutrophil % 83.4 % (47-70); Platelet Count 371 K/mm3 (150-450); RBC Distribution Width CV 17.2 % (11.6-14.6); RBC Distribution Width SD 46.5 fl (35.1-43.9); Red Blood Count 3.32 M/mm3 (4.2-5.4); White Blood Count 14.3 K/mm3 (4.4-11.0)
[2022-10-30 07:59] VITALS: O2SAT 96
--- NOTE | 2022-10-30 08:29 | PCM.PN.HOSP ---
Reason for Visit Reason for Visit: Diagnoses Iron deficiency anemia secondary to blood loss (chronic) (10/27/22) Migraine without aura, not intractable, without status migrainosus (10/27/22) Peptic ulcer, site unspecified, unspecified as acute or chronic, without hemorrhage or perforation (10/27/22) Syncope and collapse (10/27/22) Subjective Subjective Feels well. No further dizziness after an event yesterday. IV infiltrating in left arm. Objective Data Objective Data Vital Signs: Vital Signs Temp Pulse Resp BP Pulse Ox O2 Del Method 36.8 C 56 L 18 115/58 L 96 Room Air 10/30/22 03:00 10/30/22 03:00 10/30/22 03:00 10/30/22 03:00 10/30/22 07:59 10/30/22 07:59 Oxygen Delivery Method Room Air Weight: 73.482 kg Body Mass Index (BMI) 29.7 Intake & Output: Intake and Output for Last 24 Hours 10/28/22 10/29/22 10/30/22 23:59 23:59 23:59 Intake Total 2665.50 / 2665.50 527.96 / 527.96 774.75 / 774.75 Balance 2665.50 / 2665.50 527.96 / 527.96 774.75 / 774.75 Lab / Micro Data 10/30/22 05:33 10/28/22 06:00 Labs: Laboratory Results - last 24 hr 10/30/22 05:33: WBC 14.3 H, RBC 3.32 L, Hgb 7.2 L, Hct 25.4 L, MCV 76.5 L, MCH 21.7 L, MCHC 28.3 L, RDW Std Deviation 46.5 H, RDW Coeff of Jay 17.2 H, Plt Count 371, MPV 9.4, Immature Gran % (Auto) 1.800 H, Neut % (Auto) 83.4 H, Lymph % (Auto) 10.6 L, [place] % (Auto) 4.1, Eos % (Auto) 0.0, Baso % (Auto) 0.1, Absolute Neuts (auto) 11.9 H, Absolute Lymphs (auto) 1.51, Nucleated RBC % 0.4 Micro: Microbiology 10/27/22 14:05 Stool Stool Occult Blood (RD) - Final Physical Exam Const alert and no apparent distress Extremity normal to inspection Extremity Narrative: infiltrated IV in LUE. Neuro Sensorium / Orientation: awake and alert Assessment & Plan Assessment/Plan (1) Anemia: QUALIFIERS: Anemia type: iron deficiency Iron deficiency anemia type: chronic blood loss Qualified Code(s): D50.0 - Iron deficiency anemia secondary to blood loss (chronic) PLAN: acute v subacute 2/2 to GI bleed microcytic, iron-deficient transfused 1 unit PRBCs GI consulted Start IV iron. Pt is not a vegan, but does not eat red meat. Patient had hemoglobin earlier this year in March where it was 13.3. (2) Syncope: QUALIFIERS: Syncope type: unspecified Qualified Code(s): R55 - Syncope and collapse PLAN: 2/2 anemia monitor (3) Migraine: QUALIFIERS: Intractability: not intractable Migraine type: without aura Status migrainosus presence: without status migrainosus Qualified Code(s): G43.009 - Migraine without aura, not intractable, without status migrainosus PLAN: chronic has classic migraines, but also been told she has tension-type headaches. will start amitriptyline for prophylaxis and recommend that she follow up with neurology as outpt. (4) Peptic ulcer disease: PLAN: Noted on EGD. Report pending at the time of this documentation. On PPI Advised against further NSAIDs, including ibuprofen and Naprosyn. PLAN: Plan Chronic conditions: Mild intermittent asthma? Currently not in exacerbation aerosol treatment as needed Overweight with BMI 29.5? Weight loss advised DVT prophylaxis ? Chemoprophylaxis contraindicated in view of patient presenting complaints. Ambulation encouraged
[2022-10-30 09:00] VITALS: BP 110/59; PULSE 70; RESP 16; TEMP 37.2; O2SAT 99
[2022-10-30] MEDS: 0.9% Saline Lock 10 ML Syringe IV (09:04)
--- NOTE | 2022-10-30 09:16 | DS.PCM_ITS ---
Providers Date of Admission: 10/27/22 Primary Care Physician: Dr. Dang Arceo MD Consultations 10/27/22 16:48 Consult: Gastroenterology Routine Consulting Provider: [facility] Reason for Consult: [facility] Consult: No MD Notified: Yes Date Notified: 10/27/22 Time Notified: 14:51 Method of Notification: Verbal Reason For Visit: SYNCOPE Diagnosis Discharge Diagnosis (1) Anemia: Status: Acute Code(s): D64.9 - Anemia, unspecified Qualifiers: Anemia type: iron deficiency Iron deficiency anemia type: chronic blood loss Qualified Code(s): D50.0 - Iron deficiency anemia secondary to blood loss (chronic) Plan: acute v subacute 2/2 to GI bleed microcytic, iron-deficient transfused 1 unit PRBCs GI consulted Start IV iron. Pt is not a vegan, but does not eat red meat. Patient had hemoglobin earlier this year in March where it was 13.3. (2) Syncope: Status: Acute Code(s): R55 - Syncope and collapse Qualifiers: Syncope type: unspecified Qualified Code(s): R55 - Syncope and collapse Plan: 2/2 anemia monitor (3) Migraine: Status: Acute Code(s): G43.909 - Migraine, unspecified, not intractable, without status migrainosus Qualifiers: Migraine type: without aura Status migrainosus presence: without status migrainosus Intractability: not intractable Qualified Code(s): G43.009 - Migraine without aura, not intractable, without status migrainosus Plan: chronic has classic migraines, but also been told she has tension-type headaches. will start amitriptyline for prophylaxis and recommend that she follow up with neurology as outpt. (4) Peptic ulcer disease: Status: Acute Code(s): K27.9 - Peptic ulcer, site unspecified, unspecified as acute or chronic, without hemorrhage or perforation Plan: Noted on EGD. Report pending at the time of this documentation. On PPI Advised against further NSAIDs, including ibuprofen and Naprosyn. Plan Chronic conditions: * Mild intermittent asthma? Currently not in exacerbation aerosol treatment as needed * Overweight with BMI 29.5? Weight loss advised DVT prophylaxis ? Chemoprophylaxis contraindicated in view of patient presenting complaints. Ambulation encouraged Medications at Discharge Home Medications albuterol sulfate 90 mcg/actuation aerosol inhaler 1 - 2 puff inhalation Q4H PRN shortness of breath./wheezing 10/27/22 amitriptyline 10 mg tablet 10 mg PO QHS #30 tabs 10/30/22 ferrous sulfate 325 mg (65 mg iron) tablet (FeroSul) 325 mg PO DAILY@1200 #30 tabs 10/30/22 pantoprazole 40 mg tablet,delayed release (Protonix) 40 mg PO BID #90 tabs 10/30/22 Hospital Course Operations None Procedures EGD Summary of Care Provided Minutes Spent on Discharge: 35 Weight / BMI Weight Weight: 73.482 kg Body Mass Index (BMI) 29.7 ABG / Lab / Microbiology Data 10/30/22 05:33 10/28/22 06:00 Laboratory: Laboratory Results - last 24 hr 10/30/22 05:33: WBC 14.3 H, RBC 3.32 L, Hgb 7.2 L, Hct 25.4 L, MCV 76.5 L, MCH 21.7 L, MCHC 28.3 L, RDW Std Deviation 46.5 H, RDW Coeff of Jay 17.2 H, Plt Count 371, MPV 9.4, Immature Gran % (Auto) 1.800 H, Neut % (Auto) 83.4 H, Lymph % (Auto) 10.6 L, [place] % (Auto) 4.1, Eos % (Auto) 0.0, Baso % (Auto) 0.1, Absolute Neuts (auto) 11.9 H, Absolute Lymphs (auto) 1.51, Nucleated RBC % 0.4 Microbiology: Microbiology 10/27/22 14:05 Stool Stool Occult Blood (RD) - Final D/C Instructions Discharge Diet: No restrictions Call your doctor if you observe: - (blood in stools. dark tarry stools. ) Meaningful Use Info Meaningful Use Diagnoses (Choose all that apply): None applicable Discharge Plan Admission Admit Date/Time: 10/27/22 17:47 Primary Reason for Your Visit: anemia. peptic ulcers. Attending Provider: Geo Ortega Primary Care Provider: Dang Arceo Consulting Providers: aJmar Valdez Instructions Additional Instructions / Restrictions: You are anemic. Your blood count is better, but still low. With time your blood count will improve with time. Slowly ease back into your normal routine. Take iron to help replenish your blood counts with time. You are anemic from peptic ulcers. Take pantoprazole (Protonix) twice daily for the next month then daily afterwards. Do not take any NSAIDs (ibuprofen, Naprosyn) for the next 2 months. You can safely take acetaminophen (Tylenol) for pain. I have started amitriptyline (Elavil) for prophylaxis for migraines. This is a lower dose and may need to be titrated upwards. I recommend that you follow up with neurology. Discharge Orders/Prescriptions Prescriptions: New amitriptyline 10 mg Tablet 10 mg PO QHS Qty: 30 0RF ferrous sulfate [FeroSul] 325 mg (65 mg iron) Tablet 325 mg PO DAILY@1200 Qty: 30 0RF pantoprazole [Protonix] 40 mg tablet,delayed release (DR/EC) 40 mg PO BID Qty: 90 0RF Rx Instructions: twice daily for 1 month, then daily Continued albuterol sulfate 1 INHALER inhaler 1 - 2 puff inhalation Q4H PRN (Reason: shortness of breath./wheezing ) Referrals / Follow Up: [facility] [Provider Group] - Within 1 Month [facility] [Provider Group] - Within 3 Months Dang Arceo MD [Primary Care Provider] - Within 2 Weeks Disposition Disposition (needs filled in before D/C Order can be placed): Home, Self Care Charges/Coding Visit Charges Inpatient E&M: 80988 Disch Hosp >30min
--- NOTE | 2022-10-30 09:50 | PHA.DC.MC.R ---
Pharmacy [facility] has performed discharge medication reconciliation and counseling for this patient. The patient's discharge medication list was reviewed for discrepancies and discrepancies were resolved. The patient was counseled on the following discharge medications and changes in medications for homegoing were reviewed. The Reason for Use, instructions for use, and potential side effects were reviewed for all new medications. The patient's questions regarding all of their medications were answered. 1. Amitriptyline 10 mg PO QHS 2. Pantoprazole 40 mg PO BID x 30 days then daily thereafter 3. Ferrous sulfate 325 mg PO daily The patient was able to verbally demonstrate an understanding of their discharge medications. Medications at Discharge Home Medications albuterol sulfate 90 mcg/actuation aerosol inhaler 1 - 2 puff inhalation Q4H PRN shortness of breath./wheezing 10/27/22 amitriptyline 10 mg tablet 10 mg PO QHS #30 tabs 10/30/22 ferrous sulfate 325 mg (65 mg iron) tablet (FeroSul) 325 mg PO DAILY@1200 #30 tabs 10/30/22 pantoprazole 40 mg tablet,delayed release (Protonix) 40 mg PO BID #90 tabs 10/30/22
--- NOTE | 2022-10-30 10:31 | CASEMGMT ---
Patient has order for discharge. RN CM in to patient's room to discuss needs at discharge. Patient denies need or help at discharge. Patient had no further questions or concerns at this time.
[2022-10-30] MEDS: Ferrous Sulfate 325 MG Tablet PO (12:56)
[2022-10-30 13:08] LABS: Anti-Centromere B Ab <0.2 AI (0.0-0.9); Anti-Chromatin 0.2 AI (0.0-0.9); Anti-Jo <0.2 AI (0.0-0.9); Anti-Scleroderma-70 AB 0.2 AI (0.0-0.9); Anti-dsDNA Ab 1 IU/mL (0-9); RNP Ab <0.2 AI (0.0-0.9); SJOGREN'S Anti-SS-A test < 0.2 AI (0.0-0.9); SJOGREN'S Anti-SS-B test < 0.2 AI (0.0-0.9); Smith Ab <0.2 AI (0.0-0.9)
[2022-10-30 13:49] VITALS: BP 104/65; PULSE 76; RESP 16; TEMP 37.3; O2SAT 100
[2022-10-30 18:07] LABS: Gastrin, Serum < 10 pg/mL (0-115)
[2022-11-01 12:09] LABS: Cytoplasmic Ab (C-ANCA) <1:20 titer (Neg:<1:20); Deamidated Gliadin IgA 6 units (0-19); Deamidated Gliadin IgG 3 units (0-19); Endomysial Antibody IgA Negative (Negative); Immunoglobulin A 191 mg/dL (87-352); Immunoglobulin E 40 IU/mL (6-495); Immunoglobulin G 1096 mg/dL (586-1602); Immunoglobulin M 67 mg/dL (26-217); Perinuclear Ab (P-ANCA) <1:20 titer (Neg:<1:20); t-Transglutaminase IgA <2 U/mL (0-3)
== END 2022-10-30 13:49 | disposition home or self-care (01) | DRG 812 ==
LOC: ED 14:31 → PCU 14:54
PROVIDERS: Internal Medicine Gastroenterology; Admitting Provider Internal Medicine; Emergency Provider Emergency Medicine; PCP Internal Medicine
PROC: 0DJD8ZZ Inspection of Lower Intestinal Tract, Via Natural or Artificial Opening Endoscopic (ICD-10-PCS; CPT 45378; principal; 2022-10-29 11:25)
DX: D50.0 Iron deficiency anemia secondary to blood loss (chronic) (principal); E66.3 Overweight; J45.20 Mild intermittent asthma, uncomplicated; G43.001 Migraine without aura, not intractable, with status migrainosus; Z68.29 Body mass index [BMI] 29.0-29.9, adult; K27.9 Peptic ulcer, site unspecified, unspecified as acute or chronic, without hemorrhage or perforation
CPT/HCPCS: 36415; 71045; 80048; 81025; 82274; 82607; 82784; 82785; 82941; 82962; 83516; 83540; 83550; 83880; 84484; 85025; 85045; 86225; 86235; 86255; 86256; 86850; 86900; 86901; 86920; 86922; 88305; 88313; 88342; 93005; 93306; 94668; 97802; 99285; J7030; J7040; J7050; P9016; A4216; J2405; J2916; J3490

== ENCOUNTER → 2022-11-13 | Outpatient (CLI) | payer OTHER, SELFPAY ==
[2022-11-17 12:07] LABS: Beef <0.10 kU/L (Class 0); Chocolate <0.10 kU/L (Class 0); Corn 0.49 kU/L (Class I); Egg, Whole 0.19 kU/L (Class 0/I); Peanut 0.61 kU/L (Class II); Pork <0.10 kU/L (Class 0); Soybean 0.28 kU/L (Class 0/I); Wheat 2.16 kU/L (Class III)
== END | disposition home or self-care (01) ==
LOC: LAB 12:20
PROVIDERS: PCP Internal Medicine; Referring Provider Internal Medicine Gastroenterology; Visit Provider Internal Medicine Gastroenterology
DX: K20.0 Eosinophilic esophagitis (principal)
CPT/HCPCS: 36415; 86003; 86005

== ENCOUNTER 2022-11-30 14:13 | Emergency (ER) | payer OTHER, SELFPAY ==
[2022-11-30 14:18] VITALS: BP 116/79; PULSE 89; RESP 14; TEMP 36.6; O2SAT 97; BMI 29.7
--- NOTE | 2022-11-30 14:34 | EDS_ITS ---
HPI HPI - GI History of Present Illness Chief Complaint: Abd Pain Narrative Narrative: 37-year-old female past medical history of anemia, migraines, states that a month ago she was diagnosed with a hiatal hernia and takes Protonix for ulcers supposed to follow-up with GI in March presents with epigastric pain after eating. She states that around 1230, almost 2 hours ago, she began having pain in the epigastrium after eating on seasoned ground beef and rice with black beans. She began having sharp pain. It subsided but then started to return. She vomited once without any blood in her emesis. She denies any fevers or chills, no problems with bowel movements, pain is mainly right in the middle of her stomach area. Past surgical history includes remote cholecystectomy. PFSH [facility] Medical History Anemia Asthma Migraine Peptic ulcer disease Syncope Home Medications albuterol sulfate 90 mcg/actuation aerosol inhaler 1 - 2 puff inhalation Q4H PRN shortness of breath./wheezing 10/27/22 [History Last Taken 10/25/22] amitriptyline 10 mg tablet 10 mg PO QHS #30 tabs 10/30/22 [Rx Last Taken Unknown] ferrous sulfate 325 mg (65 mg iron) tablet (FeroSul) 325 mg PO DAILY@1200 #30 tabs 10/30/22 [Rx Last Taken Unknown] pantoprazole 40 mg tablet,delayed release (Protonix) 40 mg PO BID #90 tabs 10/30/22 [Rx Last Taken Unknown] Allergy/AdvReac Type Severity Reaction Status Date / Time corn AdvReac UNKNOWN Verified 11/30/22 14:18 egg AdvReac PT UNSURE Verified 11/30/22 14:18 OF REACTION lactase [From Dairy Aid] AdvReac UNKNOWN Verified 11/30/22 14:18 peanut AdvReac UNKNOWN Verified 11/30/22 14:18 soy AdvReac UNKNOWN Verified 11/30/22 14:18 wheat AdvReac PT UNSURE Verified 11/30/22 14:18 OF REACTION Social History Smoking Status: Never smoker substance use type: does not use ROS ROS ED ROS Narrative Constitutional: No fever, no chills. HEENT: No sore throat. No neck pain. No loss of vision. No rhinorrhea. Cardiovascular: No chest pain. No palpitations. No pedal edema. Respiratory: No cough, no shortness of breath. Abdominal: Epigastric abdominal pain. 1 episode of nausea and vomiting, no hematemesis. No problems with bowel movements. Genitourinary: No dysuria. No hematuria. Musculoskeletal: No myalgias. No arthralgias. Neurologic: No headaches. No dizziness. No lightheadedness. Skin: No rash. No change in color. Psychiatric: No depression. No anxiety. EXAM Physical Exam Narrative Exam Narrative: Afebrile. Vital signs noted. HEENT: Normocephalic. Atraumatic. PERRL, EOMI. Neck soft and supple. No point tenderness or step off. Cardiovascular: Regular rate and rhythm. No murmurs, rubs, or gallops apprec iated. Respiratory: No tachypnea. Lungs clear to auscultation bilaterally. Gastrointestinal: Abdomen soft, minimal tenderness in epigastrium with normoactive bowel sounds. No rebound or guarding. Neurological: Awake. Alert. Nonfocal, nonlateralizing. Skin: No rash. Normal color. No pallor. Musculoskeletal: No pedal edema. Full range of motion extremities. Const Vital Signs: 11/30/22 14:18 Temperature 98 F Temperature Source Temporal Pulse Rate 89 Respiratory Rate 14 Blood Pressure 116/79 Blood Pressure Mean 91 Pulse Ox 97 Oxygen Delivery Method Room Air MDM MDM MDM Narrative Medical decision making narrative: I reviewed the patient's prior records. I do feel that she is probably having more problems with peptic ulcer disease and/or her hiatal hernia. I do not feel she requires a CT of the abdomen and pelvis. She has had remote prior cholecystectomy so I have a low concern for retained stone. Lower on the differential is pancreatitis. She will be bolused normal saline, and CBC, CMP, and lipase obtained. For analgesia she was given morphine, and Reglan to help promote gastric emptying. She will also be given a GI cocktail to help with her hiatal hernia pain. I have low concern for bleeding ulcer as she has not had hematemesis and only vomited once. I reviewed the patient's laboratory work and she has normal white count of 6.5, hemoglobin stable at 10.4, hematocrit 35.9, platelet count normal at 299. CMP was reviewed she has very slight hypokalemia of 3.4, BUN of 9 and creatinine 0.76. LFTs are grossly unremarkable except for low AST of 9, normal ALT of 18. Lipase is normal at 30. EKG was obtained and interpreted by myself independently to help rule out cardiac ischemia. It shows sinus bradycardia 52 bpm without ectopy or acute ST changes, no STEMI, on my independent interpretation. No significant change in review of EKG dated October 28, 2022. Patient was administered her medication intravenously, morphine and Reglan. When she tried the GI cocktail, RN reports that she vomited it back up. At this point in time, she is resting comfortably. I do not feel that she requires any emergent CT imaging. I discussed with him follow-up with gastroenterology. She states she does not have follow-up till March but states that she was already scoped, and she was H. pylori negative. I do feel that she may require closer follow-up with gastroenterology and may need repeat endoscopy to make sure that her ulcers are healing, and that no new ulcers have formed. I do not feel she requires observation at this time. Return instructions to the emergency department were reviewed. Disposition is discharged home in stable condition. History & Record Review Discussion w/independent historian: Patient and Family Additional record(s) reviewed:: Prior outpatient record and Prior ED visit Lab Data Labs: Laboratory Results - last 24 hr 11/30/22 14:40 WBC 6.5 RBC 4.59 Hgb 10.4 L Hct 35.9 L MCV 78.2 L MCH 22.7 L MCHC 29.0 L RDW Std Deviation 59.7 H RDW Coeff of Jay 21.2 H Plt Count 299 MPV 9.0 Immature Gran % (Auto) 0.500 Neut % (Auto) 74.9 H Lymph % (Auto) 19.4 White % (Auto) 4.0 Eos % (Auto) 0.9 Baso % (Auto) 0.3 Absolute Neuts (auto) 4.9 Absolute Lymphs (auto) 1.26 Nucleated RBC % 0 Platelet Estimate ADEQUATE Plt Morphology Comment LARGE RBC Morphology N CHROM Anisocytosis 1+ Microcytosis 1+ Sodium 139 Potassium 3.4 L Chloride 108 H Carbon Dioxide 25.0 Anion Gap 6 BUN 9 Creatinine 0.76 Estim Creat Clear Calc 81.71 Est GFR (MDRD) Af Amer 112 Est GFR (MDRD) Non-Af 92 BUN/Creatinine Ratio 11.9 Glucose 111 H Calcium 8.9 Total Bilirubin 0.30 AST 9 L ALT 18 Alkaline Phosphatase 58 Total Protein 7.5 Albumin 3.6 Globulin 3.9 Albumin/Globulin Ratio 0.9 Lipase 30 Discharge Plan Triage Chief Complaint: Abd Pain ED Provider: Angel Salamanca Dx/Rx/DC Orders Clinical Impression: Epigastric pain, Nausea and vomiting, Hiatal hernia, PUD (peptic ulcer disease) Instructions: ED PUD, ED Epigastric Pain Uncertain Cause, ED Hiatal Hernia Prescriptions: No Action albuterol sulfate 1 INHALER inhaler 1 - 2 puff inhalation Q4H PRN (Reason: shortness of breath./wheezing ) amitriptyline 10 mg Tablet 10 mg PO QHS Qty: 30 0RF ferrous sulfate [FeroSul] 325 mg (65 mg iron) Tablet 325 mg PO DAILY@1200 Qty: 30 0RF pantoprazole [Protonix] 40 mg tablet,delayed release (DR/EC) 40 mg PO BID Qty: 90 0RF Rx Instructions: twice daily for 1 month, then daily Primary Care Provider: Dang Arceo Referrals: Dang Arceo MD [Primary Care Provider] - Friend,DO Varinder [Med Staff - Active Staff] - As soon as possible Disposition Disposition: Home, Self Care
[2022-11-30 14:48] LABS: Absolute Lymphocyte Count 1.26 X10^3/uL (0.83-4.51); Absolute Neutrophil Count 4.9 X10^3/uL (2.0-7.7); Basophil# 0.02 X10^3/uL; Basophil% 0.3 % (0-1); Eosinophil# 0.06 X10^3/uL; Eosinophils% 0.9 % (0-5); Hematocrit 35.9 % (37-47); Hemoglobin 10.4 g/dL (12.0-15.0); Lymphocyte # 1.26 X10^3/ul (0.83-4.51); Lymphocyte % 19.4 % (19-41); Mean Corpuscular Hgb 22.7 pg (27.0-32.0); Mean Corpuscular Volume 78.2 fL (81-99); Monocyte# 0.26 X10^3/uL; NRBC Flagged by Analyzer 0 % (0-5); Neutrophil # 4.85 X10^3/uL (2.7-7.7); Neutrophil % 74.9 % (47-70); POSITIVE MORPHOLOGY YES; Platelet Count 299 K/mm3 (150-450); RBC Distribution Width CV 21.2 % (11.6-14.6); RBC Distribution Width SD 59.7 fl (35.1-43.9); Red Blood Count 4.59 M/mm3 (4.2-5.4); White Blood Count 6.5 K/mm3 (4.4-11.0)
[2022-11-30] MEDS: 0.9% Normal Saline 1,000 ML 1000 ML IV (14:49)
[2022-11-30] MEDS: Metoclopramide 10 MG/2 ML Vial IV (14:49)
[2022-11-30] MEDS: Morphine 4 MG/ML Syringe IV (14:49)
[2022-11-30] MEDS: Mag Hydrox/Al Hydrox/Simeth 30 ML UDC PO (14:50)
[2022-11-30 14:52] LABS: Differential Indicated SCAN CRITERIA MET
--- NOTE | 2022-11-30 15:03 | ED.RN ---
Patient was medicated with Reglan and Morphine initially for abd pain/nausea. GI cocktail was then given several minutes later and patient immediately vomited contents. C/O dificulty swallowing at time, informed of the sensation of lidocaine. Dr. Salamanca aware of patient complaints at time and inability to retain GI cocktail
[2022-11-30 15:04] LABS: ALB/GLOB Ratio 0.9 RATIO (0.9-2.4); AST(SGOT) 9 U/L (15-37); Alanine Aminotransfer ALT/SGPT 18 U/L (13-56); Albumin, Serum 3.6 g/dL (3.2-5.0); Alkaline Phosphatase 58 U/L (45-117); Anion Gap 6 (5-15); BUN 9 mg/dL (7-18); BUN/Creat Ratio 11.9 RATIO (10-20); Calcium,Total 8.9 mg/dL (8.5-10.1); Chloride 108 mmol/L (98-107); Creatinine, Serum 0.76 mg/dL (0.55-1.02); EST Glomerular Filtration Rate 92 mL/min (>60); Est Glom Filt Rate - Afr Amer 112 mL/min (>60); Estimated Creatinine Clearance 81.71 ml/min; Globulin 3.9 g/dL (2.2-4.2); Glucose 111 mg/dL (74-106); Lipase 30 U/L (13-75); Potassium 3.4 mmol/L (3.5-5.1); Protein, Total 7.5 g/dL (6.4-8.2); Sodium Level 139 mmol/L (136-145)
[2022-11-30 15:43] LABS: Anisocytosis 1+; Microcytosis 1+; Platelet Estimate ADEQUATE (ADEQ); Platelet Morphology LARGE; Red Cell Morphology N CHROM NORMAL (NORM C&C)
[2022-11-30] MEDS: Sucralfate 1 GM Tablet PO (16:18)
[2022-11-30 16:20] VITALS: BP 121/65; PULSE 66; RESP 15; O2SAT 100
== END 2022-11-30 16:22 | disposition home or self-care (01) ==
PROVIDERS: Emergency Provider Emergency Medicine; PCP Internal Medicine; Visit Provider Emergency Medicine
DX: R10.13 Epigastric pain (principal); K44.9 Diaphragmatic hernia without obstruction or gangrene; R11.2 Nausea with vomiting, unspecified; R00.1 Bradycardia, unspecified; K27.9 Peptic ulcer, site unspecified, unspecified as acute or chronic, without hemorrhage or perforation; J45.909 Unspecified asthma, uncomplicated; Z90.49 Acquired absence of other specified parts of digestive tract
CPT/HCPCS: 80053; 83690; 85025; 93005; 96361; 96374; 96375; 99283; J7030

== ENCOUNTER 2022-12-25 09:09 | Outpatient (RCR) | payer OTHER, SELFPAY | END 2022-12-28 23:59 | LOC: NS 09:09 | PROVIDERS: PCP Internal Medicine; Referring Provider Internal Medicine Gastroenterology; Visit Provider Internal Medicine Gastroenterology | DX: E66.3 Overweight (principal); Z91.018 Allergy to other foods | CPT/HCPCS: 97802 ==

== ENCOUNTER → 2023-04-15 | Outpatient (CLI) | payer OTHER, SELFPAY | END | disposition home or self-care (01) | LOC: SL 11:32 | PROVIDERS: PCP Internal Medicine; Referring Provider Psychiatry & Neurology Neurology; Visit Provider Psychiatry & Neurology Neurology | DX: G47.10 Hypersomnia, unspecified (principal) | CPT/HCPCS: 95806 ==

== ENCOUNTER → 2023-05-05 | Outpatient (CLI) | payer OTHER, SELFPAY ==
--- NOTE | 2023-05-05 11:03 | MRI_ITS ---
STUDY: MRI BRAIN WITH AND WITHOUT CONTRAST REASON FOR EXAM: Female, 38 years old. migraine headaches TECHNIQUE: Standardized multiplanar fat and water weighted pulse sequences were obtained. clariscan 13ml IV was administered for the contrast portion of the examination. COMPARISON: None. FINDINGS: Normal size of the ventricles and extra-axial spaces for the patient''s age. Normal white matter tracts of the supratentorial brain. Normal bilateral basal ganglia. Normal thalami. There is no extra-axial fluid accumulation. Normal flow voids within the major intracranial circulation suggesting patency by spin echo criteria. Normal venous enhancement. There is no enhancing intra-axial or extra-axial abnormality. Normal sella turcica, pituitary gland, infundibular stalk, optic chiasm and hypothalamus. Normal tectal plate and pineal gland. Normal midbrain, alnoa and medulla. Normal cerebellum. Normal basal cisterns. Normal bilateral temporal bones. Normal bilateral internal auditory canals. No demonstrated orbital abnormality, within the constraints of a routine brain study. Normal visualized paranasal sinuses. Normal calvarium and skull base. Normal visualized soft tissue structures. Normal visualized upper cervical spine. MRI/Brain W/WO Contrast IMPRESSION: Normal unenhanced and enhanced MRI of the brain. Electronically Signed: Leandro Hancock MD at 19:48 EST ,
== END | disposition home or self-care (01) ==
LOC: MRI 10:59
PROVIDERS: PCP Internal Medicine; Referring Provider Psychiatry & Neurology Neurology; Visit Provider Psychiatry & Neurology Neurology
DX: G43.009 Migraine without aura, not intractable, without status migrainosus (principal)
CPT/HCPCS: 70553; A9575

== ENCOUNTER 2023-12-16 09:46 | Emergency (ER) | payer OTHER, SELFPAY ==
[2023-12-16 09:46] VITALS: BP 98/74; PULSE 80; RESP 14; TEMP 36.3; O2SAT 98; BMI 27.2
--- NOTE | 2023-12-16 10:21 | CT_ITS ---
EXAM: CT ABDOMEN AND PELVIS WITH INTRAVENOUS CONTRAST CLINICAL INDICATION: GI bleed TECHNIQUE: Helically acquired images were obtained of the abdomen and pelvis with intravenous contrast. This CT exam was performed using one or more of the following dose reduction techniques: automated exposure control, adjustment of the mA and/or kV according to patient size, and/or use of iterative reconstruction technique. CONTRAST: IV 100mL Isovue-370 RADIATION DOSE: CTDIvol = 10.35 mGy, DLP = 558.40 mGy-cm COMPARISON: No relevant prior studies available. FINDINGS: LOWER THORAX: Centrilobular groundglass opacities in the right posterior lower lobe worrisome for aspiration pneumonia or pulmonary parenchymal hemorrhage. No cardiomegaly. No significant pericardial effusion. ABDOMEN: LIVER: 1.3 cm round lesion with peripheral puddling of contrast in segment 6 of the liver parenchyma is most likely hemangioma. GALLBLADDER AND BILE DUCTS: Unremarkable. No calcified gallstones. No gallbladder distention or wall edema. No intra- or extrahepatic biliary ductal dilation. PANCREAS: Unremarkable. No focal cystic or solid mass. SPLEEN: Unremarkable. Normal size without focal cystic or solid mass. ADRENALS: Unremarkable. No nodules. KIDNEYS AND URETERS: Unremarkable. Normal renal size and position. No hydronephrosis. STOMACH AND BOWEL: Unremarkable. No stomach or bowel distention. No focal inflammatory change. PELVIS: APPENDIX: The appendix is not visualized. No secondary signs of acute appendicitis. BLADDER: Unremarkable. REPRODUCTIVE: Unremarkable as visualized. No mass. ABDOMEN and PELVIS: INTRAPERITONEAL SPACE: Unremarkable. No ascites or other fluid collection. No free air. BONES/JOINTS: Unremarkable. No suspicious lytic or blastic abnormality. SOFT TISSUES: Prominent left gastric hernia. VASCULATURE: Unremarkable. Abdominal aorta is non-dilated. LYMPH NODES: Unremarkable. No enlarged lymph nodes. CT/Abdomen/Pelvis W IV Cont ONLY IMPRESSION: 1. Aspiration pneumonia versus pulmonary parenchymal hemorrhage in the right posterior lower lobe. 2. No CT evidence of acute abnormality in the abdomen and pelvis. 3. Prominent left gastric hernia in the left chest. 4. 1.3 cm benign hemangioma in segment 6 of the liver parenchyma. Electronically Signed: Angel Granda MD at 12:20 EDT ,
--- NOTE | 2023-12-16 10:37 | EDS_ITS ---
HPI History of Present Illness Chief Complaint: GI Bleed Narrative Narrative: Chief complaint and HPI: Bright red blood per rectum. 38-year-old female with history of asthma, gastric ulcers presents for evaluation of bright red blood per rectum. Patient states for the past week she was having URI type symptoms with cough. She was seen in [place] diagnosed with pneumonia. She states she has been on antibiotics and is feeling better. However she states on Friday she developed 1 day of diarrhea that led to bright red blood per rectum. Patient states she does have a history of hemorrhoids. She denies diarrhea and constipation currently. She states the blood is on the toilet paper as well as in the bowl. She states it is periodically in her underwear when she coughs. She endorses 2 days of lightheadedness, weakness, and fatigue. She does admit to decreased p.o. intake secondary to no appetite. She denies any current fever, chills, chest pain, shortness of breath, nausea, vomiting, dysuria, hematuria. She does have some mild abdominal discomfort but did not denies true pain. Patient did state that she started her period today but states that the blood is not coming from her vaginal area. Review of systems: See HPI Medications: As listed on the chart Allergies: As listed on the chart PFSH: Per chart Vital signs: As listed on the chart. Reviewed. Physical exam: Gen: A&O x3, NAD Head: Normocephalic, atraumatic Eyes: No sclera icterus, conjunctiva clear ENT: Dry mucous membranes Neck: Trachea midline, No JVD CV: RRR, no murmurs, no peripheral edema Resp: Lungs CTA BL, no w/r/c GI: Abd soft, non-distended, non-tender, no r/r/g Rectal: No fissures. Patient does have a mildly thrombosed hemorrhoid currently not bleeding, minimally tender. Normal tone and sensation. No masses, fluctuance, or tenderness. No pain out of proportion. Brown soft stool in the vault. Musc: Full ROM, no deformity Skin: Warm, dry Neuro: Alert, oriented, grossly intact, sensation intact Psych: Cooperative, appropriate mood and affect [facility] Medical History Anemia Asthma Migraine Peptic ulcer disease Syncope Home Medications ?Medication ?Instructions ?Recorded ?Last Taken ?Type albuterol sulfate 90 mcg/actuation 1 - 2 puff inhalation Q4H PRN 10/27/22 10/25/22 History aerosol inhaler shortness of breath./wheezing ferrous sulfate 325 mg (65 mg 325 mg PO DAILY@1200 #30 tabs 10/30/22 Unknown Rx iron) tablet (FeroSul) amitriptyline 25 mg tablet 25 mg PO QHS #30 tabs 04/10/23 Unknown Rx ondansetron HCl 4 mg tablet 4 mg PO TID PRN nausea and 04/10/23 Unknown Rx vomiting #90 tabs sumatriptan succinate 50 mg tablet 50 mg PO .COMPLEX #9 tabs 04/10/23 Unknown Rx amoxicillin 875 mg-potassium 1 tab PO BID 5 days #10 tabs 12/16/23 Unknown Rx clavulanate 125 mg tablet Allergy/AdvReac Type Severity Reaction Status Date / Time corn AdvReac UNKNOWN Verified 12/16/23 09:47 egg AdvReac PT UNSURE Verified 12/16/23 09:47 OF REACTION lactase (From Dairy Aid) AdvReac UNKNOWN Verified 12/16/23 09:47 peanut AdvReac UNKNOWN Verified 12/16/23 09:47 soy AdvReac UNKNOWN Verified 12/16/23 09:47 wheat AdvReac PT UNSURE Verified 12/16/23 09:47 OF REACTION Social History Smoking Status: Never smoker substance use type: does not use EXAM Physical Exam Const Vital Signs: 12/16/23 09:46 12/16/23 11:46 12/16/23 13:00 Temperature 97.4 F L Temperature Source Temporal Pulse Rate 80 76 62 Respiratory Rate 14 18 Blood Pressure 98/74 111/76 105/65 Blood Pressure Mean 82 87 78 Pulse Ox 98 99 Oxygen Delivery Method Room Air Room Air MDM MDM MDM Narrative Medical decision making narrative: 38-year-old female with history of gastric ulcers and hemorrhoids presents for evaluation of bright red blood per rectum. She denies any dark stools. Endorses some abdominal comfort but no true pain. She endorses lightheadedness, weakness, fatigue. She was recently diagnosed with pneumonia and is currently on antibiotics, azithromycin. Pneumonia symptoms have improved. On chart review, patient's chest x-ray was not on [facility]. Her vitals are stable. Differential diagnosis includes but is not limited to symptomatic hemorrhoids, diverticulosis/diverticulitis, electrolyte abnormality, UTI. NS bolus ordered. Given this is bright red blood per rectum I do not think any Protonix is needed at this time. GI bleed workup ordered including CT abdomen pelvis. CBC without leukocytosis or anemia. Hemoglobin is actually up trending from 2022. CMP unremarkable. Lactic acid unremarkable. Troponin unremarkable. Patient's albumin is low at 2.8. This is likely secondary to her decreased p.o. intake. Her UA is positive for UTI and ketones which is consistent with dehydration. She does have blood in her urine but states she is on her period. Will send urine for culture. test negative. CT abdomen pelvis shows aspiration pneumonia versus pulmonary parenchymal hemorrhage in the right posterior lower lobe. Patient is currently on antibiotics for pneumonia with azithromycin. Clinically does not make sense for patient to have aspiration pneumonia given that she has no risk factors for this. She denies any nausea or vomiting. She has had no hemoptysis. She states her symptoms of pneumonia have improved significantly since starting antibiotics. However, given this finding we will get chest x-ray. CT abdomen pelvis further shows a prominent left gastric hernia in the left chest which patient knows about. Patient does also have a 1.3 cm benign hemangioma of the liver. No acute findings to explain her GI bleeding. Chest x-ray shows right lower lobe pneumonia. On reexamination, patient states her symptoms of lightheadedness and weakness have improved. She is able to ambulate to the bathroom without any difficulty. I do not suspect that her lightheadedness was secondary to her GI bleeding. Instead, I think it was secondary to her dehydration as her symptoms have improved with fluids. Patient states she still had an episode of bright red blood on the toilet paper. I suspect her bleeding is from hemorrhoids. Given that her symptoms have improved and her vitals are stable, I did discuss the options of admission versus discharge home and close follow-up with the patient. She would prefer to follow-up outpatient knowing that if symptoms worsen or change she needs to return back to the ED. I spoke with general surgery on-call Dr. Casey. He agrees with discharge home. Patient is to call the office when she leaves the emergency department as he will try to see her tomorrow or later this week. Patient confirmed understanding of the plan. Patient was updated on the concerns for aspiration pneumonia versus pulmonary parenchymal hemorrhage. She has no risk factors for either. However will broaden her antibiotics with Augmentin to cover for possible aspiration. She was educated to take the Augmentin as well as the azithromycin. She is to follow-up with her PCP. She confirmed understanding. Augmentin will also cover for her UTI which she confirmed. Patient stable to discharge home. EKG: Interpreted by me/EM physician: EKG shows normal sinus rhythm without any acute ischemic changes. Heart rate 60. Diagnostic: Interpreted by me/EM physician: Right lower lobe pneumonia. No effusion or pneumothorax. Impression: 1. Rectal bleeding, suspect hemorrhoidal 2. Dehydration 3. Pneumonia 4. UTI Lab Data Labs: Laboratory Results - last 24 hr 12/16/23 12/16/23 10:45 11:17 WBC 6.9 RBC 4.46 Hgb 13.2 Hct 39.1 MCV 87.7 MCH 29.6 MCHC 33.8 RDW Std Deviation 38.0 RDW Coeff of Jay 11.9 Plt Count 265 MPV 9.1 Immature Gran % (Auto) 0.300 Neut % (Auto) 74.8 H Lymph % (Auto) 17.9 L [place] % (Auto) 5.4 Eos % (Auto) 1.2 Baso % (Auto) 0.4 Absolute Neuts (auto) 5.1 Absolute Lymphs (auto) 1.23 Nucleated RBC % 0 Sodium 139 Potassium 3.7 Chloride 107 Carbon Dioxide 23.0 Anion Gap 9 BUN 9 Creatinine 0.65 Estim Creat Clear Calc 107.78 Est GFR (MDRD) Af Amer 132 Est GFR (MDRD) Non-Af 109 BUN/Creatinine Ratio 13.8 Glucose 95 Lactic Acid 0.8 Calcium 9.4 Total Bilirubin 0.40 AST 33 ALT 32 Alkaline Phosphatase 62 Troponin I High Sens < 3 L Total Protein 7.9 Albumin 2.8 L Globulin 5.1 H Albumin/Globulin Ratio 0.5 L Lipase 60 Urine Color Yellow Urine Clarity Clear Urine pH 6.0 Ur Specific [place] 1.020 Urine Protein 30 H Urine Glucose (UA) Normal Urine Ketones 50 H Urine Occult Blood 150 H Urine Nitrite Negative Urine Bilirubin Negative Urine Urobilinogen 1 H Ur Leukocyte Esterase 25 H Urine RBC 0-5 SEEN Urine WBC 0-5 SEEN Ur Squamous Epith Cells 0-5 SEEN Urine Bacteria 2+ Urine Mucus 3+ Urine Test Negative Radiography Diagnostic Testing: Clinical Impression(s) from Imaging Studies Abdomen/Pelvis CT 12/16/23 10:21 IMPRESSION: 1. Aspiration pneumonia versus pulmonary parenchymal hemorrhage in the right posterior lower lobe. 2. No CT evidence of acute abnormality in the abdomen and pelvis. 3. Prominent left gastric hernia in the left chest. 4. 1.3 cm benign hemangioma in segment 6 of the liver parenchyma. Electronically Signed: Angel Granda MD at 12:20 EDT , Chest X-Ray 12/16/23 12:30 IMPRESSION: Right lower lobe pneumonia, new when compared to 10/27/2022. Electronically Signed: Angel Granda MD at 13:50 EDT , Discharge Plan Triage Chief Complaint: GI Bleed ED Provider: David Simeon Dx/Rx/DC Orders Clinical Impression: GI (gastrointestinal bleed), Pneumonia, Acute dehydration, UTI (urinary tract infection) Instructions: Treating Pneumonia, UTIs Understanding, ED Hemorrhoids Prescriptions: New amoxicillin-pot clavulanate 875-125 mg tablet 1 tab PO BID 5 Days Qty: 10 0RF No Action amitriptyline 25 mg tablet 25 mg PO QHS Qty: 30 5RF ondansetron HCl 4 mg tablet 4 mg PO TID PRN (Reason: nausea and vomiting) Qty: 90 5RF sumatriptan succinate 50 mg tablet 50 mg PO .COMPLEX Qty: 9 5RF Rx Instructions: Take 1 tablet orally every two hours as needed for headache up to two tablets per day albuterol sulfate 1 INHALER inhaler 1 - 2 puff inhalation Q4H PRN (Reason: shortness of breath./wheezing ) ferrous sulfate [FeroSul] 325 mg (65 mg iron) Tablet 325 mg PO DAILY@1200 Qty: 30 0RF Primary Care Provider: Dang Arceo Referrals: Dang Arceo MD [Primary Care Provider] - 3-5 Days Anders Casey MD [Med Staff - Active Staff] - 3-5 Days Activity Restrictions/Additional Instructions: Finish your azithromycin. Take all of the Augmentin. Can increase diarrhea. Call general surgery office when you leave the emergency department so that you can have quick follow-up. Return back if symptoms worsen or change. Print Language: Ethiopian Disposition Disposition: Home, Self Care Discharge Date/Time: 12/16/23 14:34
[2023-12-16] MEDS: 0.9% Normal Saline (1000mL) 1,000 ML 999 ML IV (10:43)
[2023-12-16 10:59] LABS: Absolute Lymphocyte Count 1.23 X10^3/uL (0.83-4.51); Absolute Neutrophil Count 5.1 X10^3/uL (2.0-7.7); Basophil# 0.03 X10^3/uL; Basophil% 0.4 % (0-1); Eosinophil# 0.08 X10^3/uL; Eosinophils% 1.2 % (0-5); Hematocrit 39.1 % (37-47); Hemoglobin 13.2 g/dL (12.0-15.0); Lymphocyte # 1.23 X10^3/ul (0.83-4.51); Lymphocyte % 17.9 % (19-41); Mean Corp Hgb Conc 33.8 g/dL (32-36); Mean Corpuscular Hgb 29.6 pg (27.0-32.0); Mean Corpuscular Volume 87.7 fL (81-99); Mean Platelet Vol. 9.1 fl (6.2-12.0); Monocyte# 0.37 X10^3/uL; Monocyte% 5.4 % (0-10); NRBC Flagged by Analyzer 0 % (0-5); Neutrophil # 5.14 X10^3/uL (2.7-7.7); Neutrophil % 74.8 % (47-70); Platelet Count 265 K/mm3 (150-450); RBC Distribution Width CV 11.9 % (11.6-14.6); Red Blood Count 4.46 M/mm3 (4.2-5.4); White Blood Count 6.9 K/mm3 (4.4-11.0)
[2023-12-16 11:29] LABS: ALB/GLOB Ratio 0.5 RATIO (0.9-2.4); AST(SGOT) 33 U/L (15-37); Alanine Aminotransfer ALT/SGPT 32 U/L (13-56); Albumin, Serum 2.8 g/dL (3.2-5.0); Alkaline Phosphatase 62 U/L (45-117); Anion Gap 9 (5-15); BUN 9 mg/dL (7-18); BUN/Creat Ratio 13.8 RATIO (10-20); Calcium,Total 9.4 mg/dL (8.5-10.1); Chloride 107 mmol/L (98-107); Creatinine, Serum 0.65 mg/dL (0.55-1.02); EST Glomerular Filtration Rate 109 mL/min (>60); Est Glom Filt Rate - Afr Amer 132 mL/min (>60); Estimated Creatinine Clearance 107.78 ml/min; Globulin 5.1 g/dL (2.2-4.2); Glucose 95 mg/dL (74-106); Lipase 60 U/L (13-75); Potassium 3.7 mmol/L (3.5-5.1); Protein, Total 7.9 g/dL (6.4-8.2); Sodium Level 139 mmol/L (136-145); Troponin-I HS < 3 pg/mL (3.0-54.0)
[2023-12-16 11:33] LABS: Color, Urine Yellow (Yellow); Glucose, Dipstick Normal (Normal); Ketone-Dipstick 50 mg/dl (Negative); Leukocyte Esterase-Dipstick 25 /ul (Negative); Nitrite-Dipstick Negative (Negative); Occult Blood-Urine 150 /ul (Negative); Protein-Dipstick 30 mg/dl (Negative); Urine Bilirubin Dipstick Negative (Negative); Urine Clarity Clear (Clear); Urine Urobilinogen 1 mg/dl (Normal)
[2023-12-16 11:34] LABS: Internal QC Validated? YES +Cl - CLEAR BKGD; Pregnancy, Urine Negative Negative
[2023-12-16 11:35] LABS: Lactic Acid 0.8 mmol/L (0.4-1.9)
[2023-12-16 11:41] LABS: Bacteria 2+ /hpf (None Seen); Mucous, Urine 3+ /hpf (<or=2+)
[2023-12-16 11:42] LABS: Red Blood Cells-Urine 0-5 SEEN /hpf (0-5); Squamous Epithelial Cells - UA 0-5 SEEN /hpf (5-10); White Blood Cells 0-5 SEEN /hpf (0-5)
[2023-12-16 11:46] VITALS: BP 111/76; PULSE 76
--- NOTE | 2023-12-16 12:30 | RAD_ITS ---
EXAM: XR CHEST, 2 VIEWS CLINICAL INDICATION: Pneumonia. TECHNIQUE: Frontal and lateral views of the chest. COMPARISON: 10/27/2022. FINDINGS: LUNGS AND PLEURAL SPACES: Ill-defined opacities in the right lower lobe consistent with pneumonia. Large left gastric hernia in the medial aspect of the left lung base. No pneumothorax. No effusion. HEART: Unremarkable. Cardiac silhouette not enlarged. MEDIASTINUM: Central airways and mediastinal contour are unremarkable. BONES/JOINTS: Unremarkable. No acute fracture. SOFT TISSUES: Unremarkable. RAD/Chest PA and Lateral IMPRESSION: Right lower lobe pneumonia, new when compared to 10/27/2022. Electronically Signed: Angel Granda MD at 13:50 EDT ,
[2023-12-16 13:00] VITALS: BP 105/65; PULSE 62; RESP 18; O2SAT 99
== END 2023-12-16 14:34 | disposition home or self-care (01) ==
PROVIDERS: Emergency Provider Surgery; PCP Internal Medicine; Visit Provider Surgery
DX: K92.2 Gastrointestinal hemorrhage, unspecified (principal); J18.9 Pneumonia, unspecified organism; E86.0 Dehydration; N39.0 Urinary tract infection, site not specified; R42 Dizziness and giddiness; J45.909 Unspecified asthma, uncomplicated; D18.03 Hemangioma of intra-abdominal structures; K46.9 Unspecified abdominal hernia without obstruction or gangrene
CPT/HCPCS: 71046; 74177; 80053; 81001; 81025; 82274; 83605; 83690; 84484; 85025; 87086; 93005; 96360; 99282; J7030; Q9967; A4216

== ENCOUNTER 2024-08-08 21:42 | Emergency (ER) | payer OTHER, MEDICAID, SELFPAY ==
[2024-08-08 21:43] VITALS: BP 112/63; PULSE 67; RESP 18; TEMP 36.8; O2SAT 98; BMI 30.5
--- NOTE | 2024-08-08 22:07 | ED.VIS.FEGU ---
HPI HPI - Female History of Present Illness Chief Complaint: Vag Bleeding Informant: patient Bleeding Issue: Positive for Vaginal bleeding and Passing clots Onset: Today Context: Gradual Onset Timing: Intermittent Associated Symptoms P: 6 Ab: 2 Narrative Narrative: 39-year-old female blood type a positive. G8, P6 Ab2. Had a recent late term miscarriage on June 30 at [facility]. She was doing well has not had any bleeding start having spotting on Friday mildly heavier bleeding yesterday and bleeding today with some clots. Feels mildly lightheaded. Denies any fever. Only mild cramping. States with the miscarriage she did not need a D&C. She sees Dr. Chapman her [employer]. Prior similar symptoms: Yes Recent Illness/Hospitalization: Yes PFSH [facility] Medical History Peptic ulcer disease Migraine Syncope Anemia Asthma Home Medications ?Medication ?Instructions ?Recorded ?Last Taken ?Type ferrous sulfate 325 mg (65 mg 325 mg PO DAILY@1200 #30 tabs 10/30/22 Unknown Rx iron) tablet (FeroSul) amitriptyline 25 mg tablet 25 mg PO QHS #30 tabs 04/10/23 Unknown Rx ondansetron HCl 4 mg tablet 4 mg PO TID PRN nausea and 04/10/23 Unknown Rx vomiting #90 tabs sumatriptan succinate 50 mg tablet 50 mg PO .COMPLEX #9 tabs 04/10/23 Unknown Rx amoxicillin 875 mg-potassium 1 tab PO BID 5 days #10 tabs 12/16/23 Unknown Rx clavulanate 125 mg tablet pantoprazole 40 mg tablet,delayed 40 mg PO DAILY 12/17/23 Unknown History release Allergy/AdvReac Type Severity Reaction Status Date / Time tramadol Allergy Mild Nausea Verified 08/08/24 21:45 corn AdvReac UNKNOWN Verified 08/08/24 21:45 egg AdvReac PT UNSURE Verified 08/08/24 21:45 OF REACTION lactase (From Dairy Aid) AdvReac UNKNOWN Verified 08/08/24 21:45 peanut AdvReac UNKNOWN Verified 08/08/24 21:45 soy AdvReac UNKNOWN Verified 08/08/24 21:45 wheat AdvReac PT UNSURE Verified 08/08/24 21:45 OF REACTION Family History Aunt Diabetes Surgical History S/P laparoscopic cholecystectomy Social History Smoking Status: Never smoker substance use type: does not use ROS ROS ED ROS Narrative Lightheaded. Vaginal bleeding. Constitutional Constitutional ED: Denies chills or fever(s) Eyes Eyes: Denies blurry vision ENT ENT ED: Denies ear pain Cardiovascular Cardiovascular: Denies chest pain Respiratory/Chest Respiratory/Chest: Denies cough or dyspnea Gastrointestinal Gastrointestinal: Denies abdominal pain Genitourinary Genitourinary ED: Denies dysuria or hematuria Musculoskeletal Musculoskeletal: Denies arthralgias Integumentary Denies abscess Neurologic Neurologic: Reports headache(s) Psychiatric Psychiatric: Denies anxiety Endocrine Endocrinology: Denies heat intolerance Hematologic/Lymphatic Hematologic/Lymphatic: Denies easy bleeding, easy bruising or lymphadenopathy Allergic/Immunologic Allergic/Immunologic ED: Denies mouth swelling, tongue swelling or urticaria EXAM Physical Exam Narrative Exam Narrative: Well-appearing 39-year-old female. Vital signs are stable afebrile. Initial blood pressure 1 2/63. Heart rate 67. No distress. HEENT exam pupils round reactive light. Moist mucous membranes. Neck nontender JVD. Lungs clear to auscultation bilaterally. Heart regular rhythm rate about 70 no murmur. Chest wall ribs nontender. Abdomen soft nontender. Moving all 4 extremities. Nontender no edema. Neurologically she is awake alert. Answering questions following commands. Const Vital Signs: 08/08/24 21:43 Temperature 98.3 F Temperature Source Oral Pulse Rate 67 Respiratory Rate 18 Blood Pressure 112/63 Blood Pressure Mean 79 Pulse Ox 98 Oxygen Delivery Method Room Air Positive well nourished and well developed; Negative for obese, cachectic, contractures or unkempt General Appearance ED: well developed; Negative for unkempt, cachectic, contractures or pallor Nutritional Appearance: Negative for cachectic or obese HEENT Reports moist mucous membranes Negative for trauma or tenderness Eyes PERRL and EOMs intact bilaterally General Eye ED: Negative for pale conjunctiva or scleral icterus Neck no lymphadenopathy, supple and no JVD General: Negative for other Thyroid: Negative for tender Chest Wall inspection of chest normal and palpation of chest normal Resp normal respiratory effort and clear to auscultation bilaterally Cardio regular rate, regular rhythm, S1 normal heart sound, no murmurs and no JVD GI normal to inspection, nondistended, normoactive bowel sounds, soft to palpation, non-tender, non-distended and no masses Auscultation: normoactive bowel sounds Palpation: Negative for tender, guarding, rigid, hepatomegaly or splenomegaly Back/Spine no CVA tenderness General Back: Negative for CVA tenderness Cervical Spine: Negative for cervical spine tenderness Extremity normal to inspection and full ROM General Extremety ED: Negative for edema or tenderness General Extremity: Negative for edema Neuro oriented x3 and CN's II-XII intact bilaterally Sensorium / Orientation: alert, oriented to person, oriented to place and oriented to time; Negative for confused, lethargic or stuporous Motor Exam: strength 5/5 throughout Psych mental status grossly normal Appearance: Negative for unkempt Attitude: No agitated Speech: No other Mood & Affect: Negative for depressed, anxious or tearful Skin no rashes or lesions noted and no wounds General Skin Exam: Negative for jaundice or pallor Rashes: No rashes noted MDM MDM MDM Narrative Medical decision making narrative: 39-year-old female vaginal bleeding recent late term miscarriage on June 30 about 5+ weeks ago. Having bleeding now really no significant pain or mild cramping no fever. No foul-smelling discharge. Blood count of be obtained test. Should be given IV fluids. She is having no urinary symptoms. Urine looks clean in the sample bottle. I do not think we need a urinalysis. Repeat exam patient is doing well at 10:40 PM. Discussed her test results with her. She will receive her IV fluids and be discharged home to follow-up with her [employer]. She knows there is a follow-up with him or return if bleeding continues and gets heavier or she develops a fever. History & Record Review Discussion w/independent historian: Patient Additional record(s) reviewed:: Prior inpatient record, Prior outpatient record, Prior ED visit and Prior labs Lab Data Attestation: I reviewed the patient's lab results. Lab results narrative: CBC normal white count 7.4. H&H of 13.6 and 40. Platelets 264. Serum test negative. Labs: Laboratory Results - last 24 hr 08/08/24 22:13 WBC 7.4 RBC 4.51 Hgb 13.6 Hct 40.7 MCV 90.2 MCH 30.2 MCHC 33.4 RDW Std Deviation 38.6 RDW Coeff of Jay 11.7 Plt Count 264 MPV 8.9 Immature Gran % (Auto) 0.400 Neut % (Auto) 63.5 Lymph % (Auto) 27.4 [place] % (Auto) 5.8 Eos % (Auto) 2.2 Baso % (Auto) 0.7 Absolute Neuts (auto) 4.7 Absolute Lymphs (auto) 2.02 Nucleated RBC % 0 Serum , Qual NEGATIVE Discharge Plan Triage Chief Complaint: Vag Bleeding ED Provider: Alberto Mo Dx/Rx/DC Orders Clinical Impression: Vaginal bleeding, History of miscarriage Instructions: ED Dysfunctional Uterine Bleeding Prescriptions: No Action amitriptyline 25 mg tablet 25 mg PO QHS Qty: 30 5RF ondansetron HCl 4 mg tablet 4 mg PO TID PRN (Reason: nausea and vomiting) Qty: 90 5RF sumatriptan succinate 50 mg tablet 50 mg PO .COMPLEX Qty: 9 5RF Rx Instructions: Take 1 tablet orally every two hours as needed for headache up to two tablets per day pantoprazole 40 mg tablet,delayed release (DR/EC) 40 mg PO DAILY ferrous sulfate [FeroSul] 325 mg (65 mg iron) Tablet 325 mg PO DAILY@1200 Qty: 30 0RF amoxicillin-pot clavulanate 875-125 mg tablet 1 tab PO BID 5 Days Qty: 10 0RF Primary Care Provider: Dang Arceo Referrals: Dang Arceo MD [Primary Care Provider] - Activity Restrictions/Additional Instructions: Motrin and Tylenol for cramping. If heavy bleeding continues for more than 2 days follow-up with your [employer]. If you develop increasing pain or fever follow-up with your [employer]ER. Plenty of fluids and rest. Your blood counts were normal. Print Language: Italian Disposition Disposition: Home, Self Care
[2024-08-08] MEDS: 0.9% Normal Saline (1000mL) 1,000 ML 999 ML IV (22:10)
[2024-08-08 22:21] LABS: Absolute Lymphocyte Count 2.02 X10^3/uL (0.83-4.51); Absolute Neutrophil Count 4.7 X10^3/uL (2.0-7.7); Basophil# 0.05 X10^3/uL; Basophil% 0.7 % (0-1); Eosinophil# 0.16 X10^3/uL; Eosinophils% 2.2 % (0-5); Hematocrit 40.7 % (37-47); Hemoglobin 13.6 g/dL (12.0-15.0); Lymphocyte # 2.02 X10^3/ul (0.83-4.51); Lymphocyte % 27.4 % (19-41); Mean Corp Hgb Conc 33.4 g/dL (32-36); Mean Corpuscular Hgb 30.2 pg (27.0-32.0); Mean Corpuscular Volume 90.2 fL (81-99); Mean Platelet Vol. 8.9 fl (6.2-12.0); Monocyte# 0.43 X10^3/uL; Monocyte% 5.8 % (0-10); NRBC Flagged by Analyzer 0 % (0-5); Neutrophil # 4.68 X10^3/uL (2.7-7.7); Neutrophil % 63.5 % (47-70); Platelet Count 264 K/mm3 (150-450); RBC Distribution Width CV 11.7 % (11.6-14.6); RBC Distribution Width SD 38.6 fl (35.1-43.9); Red Blood Count 4.51 M/mm3 (4.2-5.4); White Blood Count 7.4 K/mm3 (4.4-11.0)
[2024-08-08 22:30] LABS: Internal QC Validated? YES +Cl - CLEAR BKGD; Pregnancy, Serum, hCG Quali. NEGATIVE Negative
[2024-08-08 23:01] VITALS: BP 120/63; PULSE 67; RESP 18; TEMP 36.7; O2SAT 100
== END 2024-08-08 23:02 | disposition home or self-care (01) ==
PROVIDERS: Emergency Provider Emergency Medicine; PCP Internal Medicine; Visit Provider Emergency Medicine
DX: N93.9 Abnormal uterine and vaginal bleeding, unspecified (principal); J45.909 Unspecified asthma, uncomplicated; R51.9 Headache, unspecified; Z87.898 Personal history of other specified conditions
CPT/HCPCS: 84703; 85025; 96360; 99283; A4216

== ENCOUNTER 2024-08-29 15:30 | Emergency (ER) | payer OTHER, MEDICAID, SELFPAY ==
[2024-08-29 15:31] VITALS: BP 117/85; PULSE 56; RESP 20; TEMP 36.5; O2SAT 100; BMI 30.7
--- NOTE | 2024-08-29 15:46 | EKG12_ITS ---
Test Reason : ABD PAIN Blood Pressure : */* mmHG Vent. Rate : 62 BPM Atrial Rate : 62 BPM P-R Int : 160 ms QRS Dur : 82 ms QT Int : 410 ms P-R-T Axes : 61 -36 66 degrees QTcB Int : 416 ms Normal sinus rhythm with sinus arrhythmia Left axis deviation Abnormal ECG Confirmed by Shelton Art ([id number]), greeting card editor TIMUR GUTIERREZ ([id number]) on 08/31/2024 9:52:07 AM Referred By: Confirmed By: Shelton Art
--- NOTE | 2024-08-29 15:47 | ED.VIS.GI ---
HPI HPI - GI History of Present Illness Chief Complaint: Abd Pain Detail of Chief Complaint: Epigastric abdominal pain for about 2 hours. Informant: patient Abdominal Pain/Flank Pain Onset: Today and Hours Context: Gradual Onset Timing: Continuous Quality: Aching and Sharp Location: Epigastric Current Severity: Moderate Maximum Severity: Moderate Relieved by: Nothing Nausea/Vomiting/Emesis GI Symptom: Negative for Nausea or Vomiting Diarrhea/Melena/Hematochezia GI Symptom: Negative for Diarrhea, Melena or Hematochezia Associated Symptoms Associated Symptoms: Negative for Dysuria, Frequency, Hematuria or Urgency Narrative Narrative: 39-year-old female with known history of peptic ulcer disease and hiatal hernia. Prior laparoscopic cholecystectomy. States that about 1 to 2 hours ago she developed epigastric abdominal pain. Radiates into her back. She gets this every 70 months. Said this is a bad episodes not improving. She got it after she started having lunch today. Denies nausea or vomiting. No diarrhea. No fever. No melena or hematemesis. Prior similar symptoms: Yes Recent Illness/Hospitalization: No PFSH PFS Medical History Peptic ulcer disease Migraine Syncope Anemia Asthma Home Medications ?Medication ?Instructions ?Recorded ?Last Taken ?Type ferrous sulfate 325 mg (65 mg 325 mg PO DAILY@1200 #30 tabs 10/30/22 Unknown Rx iron) tablet (FeroSul) amitriptyline 25 mg tablet 25 mg PO QHS #30 tabs 04/10/23 Unknown Rx ondansetron HCl 4 mg tablet 4 mg PO TID PRN nausea and 04/10/23 Unknown Rx vomiting #90 tabs sumatriptan succinate 50 mg tablet 50 mg PO .COMPLEX #9 tabs 04/10/23 Unknown Rx pantoprazole 40 mg tablet,delayed 40 mg PO DAILY 12/17/23 Unknown History release Allergy/AdvReac Type Severity Reaction Status Date / Time tramadol Allergy Mild Nausea Verified 08/29/24 15:33 corn AdvReac UNKNOWN Verified 08/29/24 15:33 egg AdvReac PT UNSURE Verified 08/29/24 15:33 OF REACTION lactase (From Dairy Aid) AdvReac UNKNOWN Verified 08/29/24 15:33 peanut AdvReac UNKNOWN Verified 08/29/24 15:33 soy AdvReac UNKNOWN Verified 08/29/24 15:33 wheat AdvReac PT UNSURE Verified 08/29/24 15:33 OF REACTION Family History Aunt Diabetes Surgical History S/P laparoscopic cholecystectomy Social History Smoking Status: Never smoker substance use type: does not use ROS ROS ED ROS Narrative Epigastric abdominal pain. Constitutional Constitutional ED: Denies chills or fever(s) Cardiovascular Cardiovascular: Denies chest pain Respiratory/Chest Respiratory/Chest: Denies cough, dyspnea or dyspnea on exertion Gastrointestinal Gastrointestinal: Denies abdominal pain, constipation, diarrhea, melena or nausea Genitourinary Genitourinary ED: Denies dysuria or hematuria Musculoskeletal Musculoskeletal: Reports back pain; Denies arthralgias Integumentary Denies abscess Neurologic Neurologic: Denies headache(s) Psychiatric Psychiatric: Denies anxiety Endocrine Endocrinology: Denies polydipsia Hematologic/Lymphatic Hematologic/Lymphatic: Denies easy bleeding Allergic/Immunologic Allergic/Immunologic ED: Denies mouth swelling, tongue swelling or urticaria EXAM Physical Exam Narrative Exam Narrative: 39-year-old female vital signs are stable afebrile. Pulse ox 100% on room air no hypoxia. H EENT exam pupils round reactive light. Moist mucous membranes. Neck nontender. No lymphadenopathy. Lungs clear to auscultation bilaterally. Heart regular rhythm rate about 55 no murmur. Chest wall ribs nontender. No reproducible chest wall pain. Abdomen soft, nontender, nondistended, normal bowel sounds without peritoneal signs. She describes the pain behind her sternum. Is not reproducible in the abdomen. Right upper and right lower quadrant nontender. There is no hernia or mass. There is no distention. There is no pulsatile mass. Moving all 4 extremities. Equal symmetrical pond tender strength. Equal symmetrical radial pulses. Calves are nontender without edema or cords. Normal dorsi plantarflexion. Back nontender. Neurologically she is awake alert. Answer question following commands. Const Vital Signs: 08/29/24 15:31 08/29/24 17:30 08/29/24 19:00 Temperature 97.7 F L Temperature Source Oral Pulse Rate 56 L 59 L 62 Respiratory Rate 20 H 18 16 Blood Pressure 117/85 H 111/77 116/77 Blood Pressure Mean 95 88 90 Pulse Ox 100 99 100 Oxygen Delivery Method Room Air Room Air Room Air Positive well nourished and well developed; Negative for obese, cachectic, contractures or unkempt General Appearance ED: well developed; Negative for unkempt, cachectic, contractures, NAD or pallor Nutritional Appearance: Negative for cachectic or obese HEENT Reports moist mucous membranes normocephalic and atraumatic; Negative for trauma or tenderness Eyes EOMs intact bilaterally General Eye ED: Negative for pale conjunctiva or scleral icterus Neck no lymphadenopathy, supple and no JVD General: Negative for tenderness Carotids: Negative for other Resp normal respiratory effort and clear to auscultation bilaterally Cardio regular rate, regular rhythm, S1 normal heart sound, S2 normal heart sound and no murmurs GI non-tender, non-distended and no masses Inspection: Negative for abdominal distention Auscultation: normoactive bowel sounds Palpation: soft; Negative for tender, guarding, hepatomegaly, splenomegaly, hernia, mass, pulsatile mass or rebound tenderness present Back/Spine no CVA tenderness General Back: Negative for CVA tenderness Cervical Spine: Negative for cervical spine tenderness Thoracic Spine / Upper Back: Negative for thoracic spinal tenderness Lumbar Spine / Lower Back: Negative for lumbar spinal tenderness Extremity full ROM General Extremety ED: Negative for edema or tenderness General Extremity: Negative for edema Neuro CN's II-XII intact bilaterally, moves all extremities and no sensory deficits noted Sensorium / Orientation: alert, oriented to person, oriented to place and oriented to time; Negative for orientation impaired, confused, lethargic or stuporous Motor Exam: strength 5/5 throughout Psych mental status grossly normal and thought process normal Appearance: Negative for unkempt Attitude: No agitated Mood & Affect: Negative for depressed or tearful Skin no wounds General Skin Exam: Negative for jaundice or pallor Lesions: no lesions Rashes: no rashes Trauma: Negative for abrasion MDM MDM MDM Narrative Medical decision making narrative: 39-year-old female began to develop pain consider hernia, pancreatitis, atypical chest pain she has had no recent chest pain or exertional dyspnea. Abdominal labs to be obtained. EKG. I do not think she needs imaging as her abdomen is completely benign.Treated with morphine and Zofran for pain. Repeat exam patient is doing well currently at 6:20 PM. Said the pain medication has helped. She has mild nausea but that was not want anything more for that. We are awaiting her CAT scan results. I spoke to the radiologist to read her CT. He is concerned for gastric volvulus. I will speak to our surgeon on-call who does not think would typically handle this here [facility] [place]. I have also sent the CAT scan to [facility] And speak to the transfer line. I discussed all this with the patient is comfortable plan. She was given additional morphine and Zofran. I spoke to our general surgeon on-call. This is not something he typically gets surgery on. I spoke to [facility]. I spoke to Dr. Leon of general surgeon. The transfer line personnel and their ER physician Dr. Henderson. Patient is been accepted will be an ER to ER transfer by ground. I informed the patient of the plan. She is comfortable with that. History & Record Review Discussion w/independent historian: Patient and Family Additional record(s) reviewed:: Prior inpatient record, Prior outpatient record, Prior ED visit and No prior records Lab Data Attestation: I reviewed the patient's lab results. Lab results narrative: CBC normal. White count 7.8. H&H 14 and 43. Platelets 307. Electrolytes show sodium 138. Gap 11. Normal BUN and creatinine 11 and 0.7. Glucose 97. Liver enzymes normal. Lipase normal at 34. Serum test negative. CT abdomen pelvis with IV contrast shows concern for a mesenteric axial gastric volvulus. Labs: Laboratory Results - last 24 hr 08/29/24 15:42 WBC 7.8 RBC 4.88 Hgb 14.6 Hct 43.7 MCV 89.5 MCH 29.9 MCHC 33.4 RDW Std Deviation 38.0 RDW Coeff of Jay 11.7 Plt Count 307 MPV 9.0 Immature Gran % (Auto) 0.400 Neut % (Auto) 61.0 Lymph % (Auto) 32.0 [place] % (Auto) 4.9 Eos % (Auto) 1.2 Baso % (Auto) 0.5 Absolute Neuts (auto) 4.7 Absolute Lymphs (auto) 2.48 Nucleated RBC % 0 Sodium 138 Potassium 4.0 Chloride 104 Carbon Dioxide 23.3 Anion Gap 11 BUN 11 Creatinine 0.70 Estim Creat Clear Calc 105.04 Est GFR (MDRD) Non-Af 113 BUN/Creatinine Ratio 15.5 Glucose 97 Calcium 9.2 Total Bilirubin 0.28 AST 22 ALT 35 Alkaline Phosphatase 53 Total Protein 7.7 Albumin 4.4 Globulin 3.3 Albumin/Globulin Ratio 1.3 Lipase 34 Serum , Qual NEGATIVE Radiography Diagnostic Testing: Clinical Impression(s) from Imaging Studies Abdomen/Pelvis CT 08/29/24 17:07 IMPRESSION: Findings worrisome for mesenteroaxial gastric volvulus, with displacement of the gastric antrum and pylorus into the lower mediastinum, above the level of the gastroesophageal junction. Recommend Surgical and/or GI consultation. 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 Reading Location: [facility] Rhythm Strip Rhythm Strip: Sinus Rhythm Rate: 62 Ectopy: None EKG Initial EKG: Attestation: I personally reviewed and interpreted this EKG as follows: Interpretation: Sinus Rhythm and No Acute Injury Pattern Comments: Normal sinus rhythm rate of 62 no acute signs of DC nor ischemia nor dysrhythmia. Discharge Plan Triage Chief Complaint: Abd Pain ED Provider: Alberto Mo Dx/Rx/DC Orders Clinical Impression: Acute gastric volvulus, History of hiatal hernia Prescriptions: No Action amitriptyline 25 mg tablet 25 mg PO QHS Qty: 30 5RF ondansetron HCl 4 mg tablet 4 mg PO TID PRN (Reason: nausea and vomiting) Qty: 90 5RF sumatriptan succinate 50 mg tablet 50 mg PO .COMPLEX Qty: 9 5RF Rx Instructions: Take 1 tablet orally every two hours as needed for headache up to two tablets per day pantoprazole 40 mg tablet,delayed release (DR/EC) 40 mg PO DAILY ferrous sulfate [FeroSul] 325 mg (65 mg iron) Tablet 325 mg PO DAILY@1200 Qty: 30 0RF Primary Care Provider: Dang Arceo Referrals: Dang Arceo MD [Primary Care Provider] - Print Language: Sen[place]alese Disposition Disposition: [facility]
[2024-08-29] MEDS: Ondansetron 4 MG/2 ML Vial IV ×3 (15:50→19:22)
[2024-08-29] MEDS: Morphine 4 MG/ML Syringe IV ×2 (15:50→19:22)
[2024-08-29] MEDS: Lidocaine 2% Viscous15 ML UDC 15 ML PO (15:52)
[2024-08-29] MEDS: Mag Hydrox/Al Hydrox/Simeth 30 ML UDC PO (15:52)
[2024-08-29 16:02] LABS: Absolute Lymphocyte Count 2.48 X10^3/uL (0.83-4.51); Absolute Neutrophil Count 4.7 X10^3/uL (2.0-7.7); Basophil# 0.04 X10^3/uL; Basophil% 0.5 % (0-1); Eosinophil# 0.09 X10^3/uL; Eosinophils% 1.2 % (0-5); Hematocrit 43.7 % (37-47); Hemoglobin 14.6 g/dL (12.0-15.0); Lymphocyte # 2.48 X10^3/ul (0.83-4.51); Mean Corp Hgb Conc 33.4 g/dL (32-36); Mean Corpuscular Hgb 29.9 pg (27.0-32.0); Mean Corpuscular Volume 89.5 fL (81-99); Monocyte# 0.38 X10^3/uL; Monocyte% 4.9 % (0-10); NRBC Flagged by Analyzer 0 % (0-5); Neutrophil # 4.73 X10^3/uL (2.7-7.7); Platelet Count 307 K/mm3 (150-450); RBC Distribution Width CV 11.7 % (11.6-14.6); Red Blood Count 4.88 M/mm3 (4.2-5.4); White Blood Count 7.8 K/mm3 (4.4-11.0)
[2024-08-29 16:26] LABS: Internal QC Validated? YES +Cl - CLEAR BKGD; Pregnancy, Serum, hCG Quali. NEGATIVE Negative
[2024-08-29 16:27] LABS: Record Kit Lot#, Serum Preg. 947241
[2024-08-29 16:49] LABS: ALB/GLOB Ratio 1.3 RATIO (0.9-2.4); AST(SGOT) 22 U/L (<=31); Alanine Aminotransfer ALT/SGPT 35 U/L (<=34); Albumin, Serum 4.4 g/dL (3.5-5.0); Alkaline Phosphatase 53 U/L (35-104); Anion Gap 11 (5-15); BUN 11 mg/dL (4-19); BUN/Creat Ratio 15.5 RATIO (10-20); Calcium,Total 9.2 mg/dL (7.6-11.0); Carbon Dioxide 23.3 mmol/L (21.0-32.0); Chloride 104 mmol/L (98-108); EST Glomerular Filtration Rate 113 (>60); Estimated Creatinine Clearance 105.04 ml/min (50-250); Globulin 3.3 g/dL (2.2-4.2); Glucose 97 mg/dL (70-99); Lipase 34 U/L (13-75); Protein, Total 7.7 g/dL (5.9-8.4); Sodium Level 138 mmol/L (133-145); Total Bilirubin 0.28 mg/dL (0.00-1.30)
--- NOTE | 2024-08-29 17:07 | CT_ITS ---
PROCEDURE: ABDOMEN/PELVIS W IV CONT ONLY 08/29/2024 REASON FOR EXAM: EPIGASTRIC PAIN W/ KNOWN HIATAL HERNIA TECHNIQUE: Abdomen and pelvis CT with intravenous contrast. Coronal and Sagittal reconstruction series were provided. PATIENT PREPARATION: Per protocol CONTRAST: 100 mL Isovue 370 One or more dose reduction techniques were used (e.g., Automated exposure control, adjustment of the mA and/or kV according to patient size, use of iterative reconstruction technique. RADIATION DOSE SUMMARY: CTDlvol: 15.3 mGy DLP: 850 mGycm COMPARISON: CT abdomen and pelvis on 12/16/2023 FINDINGS: Lung bases: Unremarkable. Liver: There is a 1.2 cm hypodense lesion in the right hepatic lobe, unchanged. Gallbladder: Surgically absent. Spleen: Normal size. Pancreas: Normal size without evidence of mass surrounding inflammation or ductal dilation. Adrenals: Unremarkable Kidneys: No hydronephrosis or stone. Bladder: Unremarkable for degree of distention. Reproductive Organs: Corpus luteum in the left adnexa. Otherwise unremarkable. Bowel: The gastric antrum is herniated into the lower mediastinum, with transition to normal caliber duodenum. The gastric fundus and body are located in the left upper quadrant of the abdomen, and distended with an air-fluid level present. Normal appendix. Lymph nodes: No suspicious lymph node enlargement. Vasculature: The abdominal aorta and IVC are normal. Bones: Unremarkable. CT/Abdomen/Pelvis W IV Cont ONLY IMPRESSION: Findings worrisome for mesenteroaxial gastric volvulus, with displacement of th e gastric antrum and pylorus into the lower mediastinum, above the level of the gastroesophageal junction. Recommend Surgi marisol and/or GI consultation. 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 Reading Location: [id number]
[2024-08-29] MEDS: morphine 8 MG/ML Syringe 6 MG IV (17:11)
[2024-08-29 17:30] VITALS: BP 111/77; PULSE 59; RESP 18; O2SAT 99
[2024-08-29 19:00] VITALS: BP 116/77; PULSE 62; RESP 16; O2SAT 100
[2024-08-29] MEDS: Pantoprazole Sodium 40 MG in 0.9% Normal Saline (100mL MB+) 100 ML 330 MG IV (19:23)
[2024-08-29 20:50] VITALS: BP 119/81; PULSE 84; RESP 16; O2SAT 100
[2024-08-29] MEDS: Metoclopramide 10 MG/2 ML Vial 5 MG IV (21:32)
[2024-08-29 23:00] VITALS: BP 118/85; PULSE 80; RESP 16; TEMP 36.6; O2SAT 100
[2024-08-30 01:00] VITALS: BP 109/66; PULSE 59; RESP 16; TEMP 36.7; O2SAT 97
--- NOTE | 2024-08-30 02:02 | PCA ---
called [facility] @ 0150 to get an eta for ride, spoke to Jose. he stated they have no records of any such ride for this pt. I checked my call log and told him I arranged transport at 2037, and spoke to Shaina. I was given a 4-5 hour wait time ([id number]) due to our prior trip being long distance, and the same crew would have to come back. He stated there was no Shaina working tonight. I set up a new ride, he stated the crew is at the station so it should only be around 45 min, maybe one hour tops ([id number]).
[2024-08-30] MEDS: Metoclopramide 10 MG/2 ML Vial 5 MG IV (02:36)
--- NOTE | 2024-08-30 02:47 | NURSING ---
This RN notified pt of delay in transport time. Pt and requested to transport themselves. Spoke with MD. Muñoz to do that. Paper signed. Packet given.
[2024-08-30 02:48] VITALS: BP 106/78; PULSE 60; RESP 16; TEMP 36.7; O2SAT 97
== END 2024-08-30 03:00 | disposition short-term general hospital (02) ==
PROVIDERS: Emergency Provider Emergency Medicine; PCP Internal Medicine; Visit Provider Emergency Medicine
DX: K31.89 Other diseases of stomach and duodenum (principal); R10.13 Epigastric pain; J45.909 Unspecified asthma, uncomplicated; Z90.49 Acquired absence of other specified parts of digestive tract
CPT/HCPCS: 74177; 80053; 83690; 84703; 85025; 93005; 96365; 96366; 96375; 96376; 99285; Q9967; A4216; J2405